=== PATIENT | male | born 1960 | race Caucasian/White ===

== ENCOUNTER 2016-09-06 17:36 | Inpatient (IN) | payer OTHER ==
[2016-09-06] MEDS ORDERED: RX INFO: IV CONTRAST WAS GIVEN 1 EACH MISC MISCELLANE PRN (19:11)
[2016-09-06] MEDS ORDERED: SODIUM CHLORIDE 0.9% 1,000 ML IV STA (19:11)
[2016-09-06] MEDS ORDERED: ACETAMINOPHEN IV (For NPO) 1,000 MG in EMPTY BAG 1 BAG IVPB ONE (19:11)
--- NOTE | 2016-09-06 19:27 | ED ---
Abdominal Pain HPI <ApolinarEusebio - Last Filed: 09/06/16 21:56> - General Source: patient, RN notes reviewed Mode of arrival: ambulatory <Maureen Ayala - Last Filed: 09/06/16 22:15> - General Chief Complaint: Abdominal Pain Stated Complaint: ABDOMINAL PAIN, POST GALLBLADDER Sx Time Seen by Provider: 09/06/16 18:52 - History of Present Illness Initial Comments: 55-year-old male presents to the emergency abdominal pain. Patient states that this pain started over the last week or so. Patient states he had nausea and vomiting with it. Patient does admit to a recent gallbladder surgery by Dr. Boyer about a month ago. Patient states that he has felt hot and cold with vomiting. Patient states that she has this pain in the center of his abdomen. Patient states his concern that the recent surgery and the symptoms he thought that he should be evaluated. Patient states he has not contacted surgery about his complaints.Patient denies any recent fever, chills, shortness of breath, chest pain, back pain, numbness or tingling, dysuria or hematuria, constipation or diarrhea, headaches or visual changes, or any other current symptoms. (Maureen Ayala) - Related Data Home Medications Medication Instructions Recorded Confirmed Aspirin 81 mg PO DAILY 08/11/16 09/06/16 Cyclobenzaprine [Flexeril] 5 mg PO TID PRN 08/11/16 09/06/16 Insulin Glargine [Lantus] 35 unit SQ DAILY 08/11/16 09/06/16 Losartan [Cozaar] 12.5 tab PO DAILY 08/11/16 09/06/16 Meclizine [Antivert] 12.5 mg PO DAILY PRN 08/11/16 09/06/16 metFORMIN HCL [metFORMIN HCL ER] 1,000 mg PO BID 08/11/16 09/06/16 Omeprazole 20 mg PO DAILY 09/06/16 09/06/16 Simethicone [Gas-X] 250 mg PO DAILY 09/06/16 09/06/16 Allergies Allergy/AdvReac Type Severity Reaction Status Date / Time hydromorphone [From Dilaudid] AdvReac Nausea Verified 09/06/16 19:37 morphine AdvReac Nausea Verified 09/06/16 19:37 Review of Systems ROS Other: All systems not noted in ROS Statement are negative. <Eusebio Jiang - Last Filed: 09/06/16 21:56> ROS Other: All systems not noted in ROS Statement are negative. <JamieMaureen - Last Filed: 09/06/16 22:15> ROS Statement: Those systems with pertinent positive or pertinent negative responses have been documented in the HPI. Past Medical History Past Medical History: Diabetes Mellitus Additional Past Medical History / Comment(s): neck and back pain, vertigo History of Any Multi-Drug Resistant Organisms: None Reported Past Surgical History: Cholecystectomy, Hernia Repair Additional Past Surgical History / Comment(s): BILATERAL CATARACT IMPLANTS Past Anesthesia/Blood Transfusion Reactions: No Reported Reaction Past Psychological History: No Psychological Hx Reported Smoking Status: Never smoker Past Alcohol Use History: Occasional Past Drug Use History: None Reported - Past Family History Father Family Medical History: Diabetes Mellitus Additional Family Medical History / Comment(s): LEUKEMIA Mother Additional Family Medical History / Comment(s): CANCER SPINE <Maureen Ayala - Last Filed: 09/06/16 22:15> General Exam <Eusebio Jiang - Last Filed: 09/06/16 21:56> <Maureen Ayala - Last Filed: 09/06/16 22:15> - General Exam Comments Initial Comments: General: The patient is awake and alert, in no distress, and does not appear acutely ill. jaundice Eye: Pupils are equal, round and reactive to light, extra-ocular movements are intact; there is normal conjunctiva bilaterally. No signs of icterus. Ears, nose, mouth and throat: There are moist mucous membranes. Neck: The neck is supple, there is no tenderness. Cardiovascular: There is a regular rate and rhythm. No murmur, rub or gallop is appreciated. Respiratory: Lungs are clear to auscultation, respirations are non-labored, breath sounds are equal. No wheezes, stridor, rales, or rhonchi. Gastrointestinal: Soft, non-distended, epigastric tenderness of the abdomen without masses or organomegaly noted. There is no rebound or guarding present. No CVA tenderness. Bowel sounds are unremarkable. Back: There is no tenderness to palpation in the midline. There is no obvious deformity. No rashes noted. Musculoskeletal: Normal ROM, no tenderness, There is no pedal edema. There is no calf tenderness or swelling. Sensation intact. Pulses equal bilaterally 2+. Neurological: CN II-XII intact, There are no obvious motor or sensory deficits. Coordination appears grossly intact. Speech is normal. Skin: Skin is warm and dry and no rashes or lesions are noted. Psychiatric: Cooperative, appropriate mood & affect, normal judgment. (Maureen Ayala) Medical Decision Making - Lab Data Result diagrams: 09/06/16 19:29 09/06/16 19:29 <Eusebio Jiang - Last Filed: 09/06/16 21:56> - Lab Data Result diagrams: 09/06/16 19:29 09/06/16 19:29 <Maureen Ayala - Last Filed: 09/06/16 22:15> - Medical Decision Making Medical decision making. I examined the patient, reviewed his past history, recent laparoscopic cholecystectomy. Patient's had nausea vomiting and diarrhea. Skin is mildly yellow. Labs show bilirubin of 6.0 liver enzymes otherwise elevated. I discussed the case with Dr. Cool on-call for Dr. espinal. Patient be admitted to his service Nothing by mouth after midnight. With GI consultation. Dr. Jiang (Eusebio Jiang) 55-year-old male presents emergency 5 chief complaint of epigastric abdominal pain with nausea vomiting. At this time patient's laboratory is reviewed that show an elevated bilirubin and the patient is jaundiced on exam. At this time we did discuss the case with Dr. Guevara who would like us to consult GI. At this time we will keep the patient nothing by mouth and continued pain and nausea medication. The plan was discussed with patient who is in agreement. (Maureen Ayala) - Lab Data Lab Results 09/06/16 09/06/16 09/06/16 Range/Units 19:29 19:29 19: WBC 10.5 (3.8-10.6) k/uL RBC 5.02 (4.30-5.90) m/uL Hgb 12.2 L (13.0-17.5) gm/dL Hct 39.3 (39.0-53.0) % MCV 78.3 L (80.0-100.0) fL MCH 24.4 L (25.0-35.0) pg MCHC 31.2 (31.0-37.0) g/dL RDW 15.2 (11.5-15.5) % Plt Count 268 (150-450) k/uL Neutrophils % 78 % Lymphocytes % 14 % Monocytes % 6 % Eosinophils % 0 % Basophils % 0 % Neutrophils # 8.2 H (1.3-7.7) k/uL Lymphocytes # 1.4 (1.0-4.8) k/uL Monocytes # 0.6 (0-1.0) k/uL Eosinophils # 0.0 (0-0.7) k/uL Basophils # 0.0 (0-0.2) k/uL Hypochromasia Slight Sodium 139 (137-145) mmol/L Potassium 4.3 (3.5-5.1) mmol/L Chloride 100 (98-107) mmol/L Carbon Dioxide 28 (22-30) mmol/L Anion Gap 11 mmol/L BUN 19 (9-20) mg/dL Creatinine 1.19 (0.66-1.25) mg/dL Est GFR (MDRD) Af Amer >60 (>60 ml/min/1.73 sqM) Est GFR (MDRD) Non-Af >60 (>60 ml/min/1.73 sqM) Glucose 176 H (74-99) mg/dL Plasma Lactic Acid Vipul 1.5 (0.7-2.0) mmol/L Calcium 9.7 (8.4-10.2) mg/dL Total Bilirubin 6.0 H (0.2-1.3) mg/dL AST 550 H (17-59) U/L ALT 188 H (21-72) U/L Alkaline Phosphatase 168 H (38-126) U/L Total Protein 7.2 (6.3-8.2) g/dL Albumin 4.5 (3.5-5.0) g/dL Amylase 53 (30-110) U/L Lipase 72 (23-300) U/L Urine Color Urine Appearance (Clear) Urine pH (5.0-8.0) Ur Specific [place] (1.001-1.035) Urine Protein (Negative) Urine Glucose (UA) (Negative) Urine Ketones (Negative) Urine Blood (Negative) Urine Nitrate (Negative) Urine Bilirubin (Negative) Urine Urobilinogen (<2.0) mg/dL Ur Leukocyte Esterase (Negative) 09/06/16 Range/Units 20:39 WBC (3.8-10.6) k/uL RBC (4.30-5.90) m/uL Hgb (13.0-17.5) gm/dL Hct (39.0-53.0) % MCV (80.0-100.0) fL MCH (25.0-35.0) pg MCHC (31.0-37.0) g/dL RDW (11.5-15.5) % Plt Count (150-450) k/uL Neutrophils % % Lymphocytes % % Monocytes % % Eosinophils % % Basophils % % Neutrophils # (1.3-7.7) k/uL Lymphocytes # (1.0-4.8) k/uL Monocytes # (0-1.0) k/uL Eosinophils # (0-0.7) k/uL Basophils # (0-0.2) k/uL Hypochromasia Sodium (137-145) mmol/L Potassium (3.5-5.1) mmol/L Chloride (98-107) mmol/L Carbon Dioxide (22-30) mmol/L Anion Gap mmol/L BUN (9-20) mg/dL Creatinine (0.66-1.25) mg/dL Est GFR (MDRD) Af Amer (>60 ml/min/1.73 sqM) Est GFR (MDRD) Non-Af (>60 ml/min/1.73 sqM) Glucose (74-99) mg/dL Plasma Lactic Acid Vipul (0.7-2.0) mmol/L Calcium (8.4-10.2) mg/dL Total Bilirubin (0.2-1.3) mg/dL AST (17-59) U/L ALT (21-72) U/L Alkaline Phosphatase (38-126) U/L Total Protein (6.3-8.2) g/dL Albumin (3.5-5.0) g/dL Amylase (30-110) U/L Lipase (23-300) U/L Urine Color Dark Yellow Urine Appearance Clear (Clear) Urine pH 6.5 (5.0-8.0) Ur Specific [place] 1.043 H (1.001-1.035) Urine Protein Trace H (Negative) Urine Glucose (UA) 1+ H (Negative) Urine Ketones 2+ H (Negative) Urine Blood Negative (Negative) Urine Nitrate Negative (Negative) Urine Bilirubin 2+ H (Negative) Urine Urobilinogen 4.0 (<2.0) mg/dL Ur Leukocyte Esterase Negative (Negative) Disposition <Eusebio Jiang - Last Filed: 09/06/16 21:56> Time of Disposition: 22:14 Decision Date: 09/06/16 Decision Time: 22:14 <Maureen Ayala - Last Filed: 09/06/16 22:15> Clinical Impression: Abdominal pain, Type 2 diabetes mellitus, Jaundice, Elevated bilirubin, Nausea & vomiting, Biliary obstruction Disposition: ADMITTED IP TO THIS HOSP Condition: Stable
[2016-09-06 19:40] LABS: Basophils % (A) 0 %; CH 24.7; CHCM 31.7; Eosinophils % (A) 0 %; HCT 39.3 % (39.0-53.0); HDW 2.99; HGB 12.2 gm/dL (13.0-17.5); Hypochromasia Slight; Luc # (Auto) 0.23; Luc % (Auto) 2; Lymphocytes # (A) 1.4 k/uL (1.0-4.8); Lymphocytes % (A) 14 %; MCH 24.4 pg (25.0-35.0); MCHC 31.2 g/dL (31.0-37.0); MCV 78.3 fL (80.0-100.0); Mean Platelet Volume 7.5; Monocytes # (A) 0.6 k/uL (0-1.0); Monocytes % (A) 6 %; Neutrophils # (A) 8.2 k/uL (1.3-7.7); Neutrophils % (A) 78 %; RBC 5.02 m/uL (4.30-5.90); RDW 15.2 % (11.5-15.5); WBC 10.5 k/uL (3.8-10.6); WBC (Perox) 10.58
[2016-09-06 19:56] LABS: ALT 188 U/L (21-72); AST 550 U/L (17-59); Alkaline Phosphatase 168 U/L (38-126); Amylase 53 U/L (30-110); Anion Gap 11 mmol/L; Blood Urea Nitrogen 19 mg/dL (9-20); Calcium 9.7 mg/dL (8.4-10.2); Carbon Dioxide 28 mmol/L (22-30); Chloride 100 mmol/L (98-107); Glucose 176 mg/dL (74-99); Non-African American GFR(MDRD) >60 (>60 ml/min/1.73 sqM); Potassium 4.3 mmol/L (3.5-5.1); Sodium 139 mmol/L (137-145); Total Protein 7.2 g/dL (6.3-8.2)
--- NOTE | 2016-09-06 20:33 | CT ---
EXAMINATION TYPE: CT abdomen pelvis w con DATE OF EXAM: 09/06/2016 8:25 PM COMPARISON: 08/11/2016 HISTORY: Post OP Dhole 4 weeks ago. Generalized pain for [address] DLP: 1328.4 mGycm Automated exposure control for dose reduction was used. TECHNIQUE: Helical acquisition of images was performed from the lung bases through the pelvis. CONTRAST: Performed without Oral Contrast and with IV Contrast, patient injected with 100 mL of Omnipaque 300. FINDINGS: Lung bases are clear. There is no pleural effusion. There is a hiatal hernia. Heart size is normal. Liver spleen pancreas appear normal. There are clips from cholecystectomy. There is minimal density a t the surgery site. Bile ducts are not dilated. There is no adrenal mass. Kidneys show satisfactory contrast opacification. There is no hydronephrosi s. There is no retroperitoneal adenopathy. There is no ascites. Appendix is normal. I see no intestin al wall thickening. There are no dilated loops. Bladder distends smoothly. There is no sign of a pelvic mass. I see no bony destructive process. IMPRESSION: THERE IS SOME MINIMAL DENSITY AT THE CHOLECYSTECTOMY SITE CONSISTENT WITH POSTSURGICAL CHANGES. OTHER EWING NEGATIVE EXAM. NORMAL APPENDIX. THERE IS CHOLECYSTECTOMY SINCE LAST EXAM. NO DILATED DUCTS. HIATAL HERNIA.
[2016-09-06 20:48] LABS: Appearance,Urine Clear (Clear); Bilirubin,Urine 2+ (Negative); Glucose,Urine (UA) 1+ (Negative); Leukocyte Esterase,Urine Negative (Negative); Nitrite,Urine Negative (Negative); PH, Urine 6.5 (5.0-8.0); Protein,Urine Trace (Negative); Specific Gravity,Urine 1.043 (1.001-1.035); UA Billing (MACRO vs. MICRO) CHEM
[2016-09-06 21:09] LABS: Ketones,Urine 2+ (Negative)
--- NOTE | 2016-09-06 21:17 | US ---
EXAMINATION TYPE: US abdomen limited DATE OF EXAM: 09/06/2016 9:07 PM COMPARISON: US 08/11/2016, CT tonight CLINICAL HISTORY: Cholecystectomy 1 month ago, on and off abd pain since, getting worse starting 1 we ek ago, gross hematuria today EXAM MEASUREMENTS: Liver Length: 17.5cm Gallbladder Wall: N/A CBD: 0.5cm Right Kidney: 9.8 x 4.9 x 5.4cm RUQ ABDOMINAL ULTRASOUND ANATOMY: Pancreas: limited visibility due to bowel gas Liver: intercostal imaging due to gas, appears wnl Gallbladder: surgically absent CBD: wnl Right Kidney: wnl IMPRESSION: Cholecystectomy. No dilated ducts. No focal liver defect. No free fluid. Normal Values: Liver Length: < 16cm wnl, 17-18cm upper limits, >18cm enlarged Renal Length = 9 - 12cm GB Wall: < 0.3cm CBD: < 0.6cm or < 1.0cm post cholecystectomy Portal Vein Diameter: < 13mm Portal Vein Flow Velocity: between 16 and 40cm/sec Hepatic Artery resistive Index: between 0.55 and 0.8 Hepatic Artery Acceleration Time: <0.08 seconds Splenic Vein Diameter: < 10mm
[2016-09-06] MEDS ORDERED: NALOXONE 0.4 MG/ML 1 ML VIAL IV PRN (22:15)
[2016-09-06] MEDS ORDERED: ACETAMINOPHEN TAB 325 MG TAB PO PRN (22:15)
[2016-09-06] MEDS ORDERED: MECLIZINE 12.5 MG TAB PO PRN (22:17)
[2016-09-06] MEDS ORDERED: CYCLOBENZAPRINE 5 MG TAB PO PRN (22:17)
[2016-09-06] MEDS ORDERED: HYDROmorphone 1 MG/ML 1 ML SYRINGE IVP STA ×2 (22:17→23:34)
[2016-09-06] MEDS: SODIUM CHLORIDE 0.9% 1,000 ML IV SCH (23:55)
[2016-09-07 00:31] VITALS: BMI 32.0
[2016-09-07] MEDS: HYDROmorphone 1 MG/ML 1 ML SYRINGE IVP PRN ×5 (03:47→20:31)
[2016-09-07] MEDS: ONDANSETRON 4 MG/2 ML VIAL IVP PRN ×2 (03:48→20:11)
[2016-09-07 07:21] LABS: Basophils % (A) 0 %; CH 24.7; Eosinophils # (A) 0.1 k/uL (0-0.7); Eosinophils % (A) 1 %; HCT 39.4 % (39.0-53.0); HDW 2.95; HGB 11.9 gm/dL (13.0-17.5); Hypochromasia Moderate; Luc # (Auto) 0.23; Luc % (Auto) 2; Lymphocytes # (A) 1.6 k/uL (1.0-4.8); Lymphocytes % (A) 16 %; MCH 24.2 pg (25.0-35.0); MCHC 30.2 g/dL (31.0-37.0); MCV 80.1 fL (80.0-100.0); Mean Platelet Volume 8.2; Monocytes # (A) 0.6 k/uL (0-1.0); Monocytes % (A) 6 %; Neutrophils # (A) 7.3 k/uL (1.3-7.7); Neutrophils % (A) 74 %; RBC 4.92 m/uL (4.30-5.90); RDW 15.5 % (11.5-15.5); WBC 9.8 k/uL (3.8-10.6); WBC (Perox) 10.02
[2016-09-07] MEDS ORDERED: metFORMIN 500 MG TAB PO SCH (07:30)
[2016-09-07 07:34] LABS: ALT 187 U/L (21-72); AST 420 U/L (17-59); Alkaline Phosphatase 161 U/L (38-126); Anion Gap 12 mmol/L; Blood Urea Nitrogen 14 mg/dL (9-20); Calcium 9.3 mg/dL (8.4-10.2); Carbon Dioxide 27 mmol/L (22-30); Chloride 101 mmol/L (98-107); Glucose 154 mg/dL (74-99); Magnesium 1.8 mg/dL (1.6-2.3); Non-African American GFR(MDRD) >60 (>60 ml/min/1.73 sqM); Phosphorous 3.6 mg/dL (2.5-4.5); Potassium 4.4 mmol/L (3.5-5.1); Sodium 140 mmol/L (137-145); Total Bilirubin 6.6 mg/dL (0.2-1.3); Total Protein 6.7 g/dL (6.3-8.2)
[2016-09-07 07:54] LABS: Glucose,Whole Blood 134 mg/dL (75-99)
[2016-09-07] MEDS ORDERED: PANTOPRAZOLE 40 MG TABLET PO SCH (09:00)
[2016-09-07 09:43] LABS: Bilirubin, Delta 1.9 mg/dL (0.0-0.2)
[2016-09-07 10:15] LABS: Hepatitis B Surface Ag Index 0.06
[2016-09-07] MEDS: INSULIN LISPRO (humaLOG) 300 UNIT/3 ML VIAL SQ SCH ×4 (10:18→20:11)
[2016-09-07] MEDS: ASPIRIN 81 MG CHEW PO SCH (10:19)
[2016-09-07] MEDS: SIMETHICONE 80 MG CHEWABLE PO SCH (10:19)
[2016-09-07 10:20] LABS: Hepatitis B Core IgM Index 0.03
[2016-09-07] MEDS: INSULIN GLARGINE 100 UNIT/ML 10 ML VIAL SQ SCH (10:20)
[2016-09-07] MEDS: LOSARTAN 25 MG TAB PO SCH (10:21)
[2016-09-07 10:32] LABS: Hepatitis C Virus IgG Index 0.02
[2016-09-07 10:40] LABS: Hepatitis C Virus IgG Ab Negative (Negative)
--- NOTE | 2016-09-07 11:44 | CONS ---
DATE OF CONSULTATION: The patient is a 55-year-old gentleman who has recent cholecystectomy about week ago came in with complaints of severe epigastric abdominal pain. Patient is admitted to surgical service and the patient is also found to have hyperbilirubinemia. I reviewed his medications. None of which appear to have caused biliary stasis. CT of the abdomen only showed postsurgical changes. The patient's ultrasound of the abdomen is essentially negative. Patient had 10/10 epigastric sharp pain, nonradiating pain and this probably related to gastritis and hepatitis panel was ordered. Bilirubin fractions are still pending. Gastroenterology was consulted as well. Patient denied any fever or chills. Patient was having nausea, vomiting, which improved at this point of time. Patient is on Dilaudid frequently about every 2 hours and his pain is well controlled with Dilaudid he says. REVIEW OF SYSTEMS: CONSTITUTIONAL: No fever, no malaise, no fatigue. HEENT: No recent visual problems or hearing problems. Denied any sore throat. CARDIOVASCULAR: No chest pain, orthopnea, PND, no palpitations, no syncope. PULMONARY: No shortness of breath, no cough, no hemoptysis. GASTROINTESTINAL: as described in HPI. NEUROLOGICAL: No headaches, no weakness, no numbness. HEMATOLOGICAL: Denies any bleeding or petechiae. GENITOURINARY: Denies any burning micturition, frequency, or urgency. MUSCULOSKELETAL/RHEUMATOLOGICAL: Denies any joint pain, swelling, or any muscle pain. ENDOCRINE: Denies any polyuria or polydipsia. The rest of the 14 point review of systems is negative. PAST MEDICAL HISTORY: Significant for ( ). Home medications include: 1. Aspirin. 2. Cyclobenzaprine. 3. Losartan. 4. Insulin glargine. 5. Meclizine. 6. Metformin. 7. Omeprazole. 8. Simethicone. ALLERGIES: ALLERGIC TO HYDROMORPHONE but the patient is actually taking hydromorphone and morphine and so actually patient is probably not allergic to this medication. Past medical history significant for diabetes mellitus and back and neck pain, vertigo, cholecystectomy and hernia repair. SOCIAL HISTORY: Denied any smoking, occasional alcohol user. Denied any drug abuse. FAMILY HISTORY: Significant for diabetes mellitus. Father had diabetes mellitus and leukemia. Mother had ( ) cancer as per the patient. PHYSICAL EXAMINATION: VITAL SIGNS: Temperature 96.2, pulse of 90, respiratory rate of ( ), blood pressure is 169/94. Saturating at 98% on room air. GENERAL: The patient is alert and oriented x3, not in any acute distress. Well developed, well nourished. HEENT: Pupils are round and equally reacting to light. EOMI. No scleral icterus. No conjunctival pallor. Normocephalic, atraumatic. No pharyngeal erythema. No thyromegaly. CARDIOVASCULAR: S1 and S2 present. No murmurs, rubs, or gallops. PULMONARY: Chest is clear to auscultation, no wheezing or crackles. ABDOMEN: minimal epigastric abdominal tenderness was appreciated. Abdomen is distended because of fat, no rebound or rigidity. Whitaker's sign is negative. MUSCULOSKELETAL: No joint swelling or deformity. EXTREMITIES: No cyanosis, clubbing, or pedal edema. NEUROLOGICAL: Gross neurological examination did not reveal any focal deficits. SKIN: No rashes. LABORATORY DATA: CBC, CMP are abnormal for significantly abnormal for elevated bilirubin of 6.6. The patient appears to have conjugated as well as unconjugated bilirubinemia which makes us believe patient has some intrahepatic causes, liver enzymes AST and ALT are elevated which are actually appears to have come down a little bit, AST and ALT and alkaline phosphatase are a bit elevated. UA showed 2+ bilirubin and hepatitis panel was done, which is negative. Further work-up with autoimmune causes for hyperbilirubinemia as per gastroenterology. ASSESSMENT AND PLAN: 1. Epigastric abdominal pain is probably related to his gastritis. Continue with pain medications and continue Protonix which was changed to b.i.d. 2. Elevated liver enzymes; unsure of the exact etiology. Patient probably will need autoimmune workup. I will leave further decision of these autoimmune antibiotics to gastroenterology who evaluated the patient and patient has liver enzymes will be monitored tomorrow. Patient most probably his biliary stasis is probably related to medications, the antibiotics he received during his previous hospitalization I believe. Maybe [place] is contributing to it as well and patient is on Tylenol which will be discontinued. 3. It is not uncommon to find any other cause, although we are still in preliminary stage of work-up for his hyperbilirubinemia. 4. Hypertension. 5. Gastroesophageal reflux disease. 6. Diabetes mellitus. For above-mentioned chronic medical problems I will go ahead and continue his home medications. Thank you for letting me participate in the patient's care. I will continue to follow the patient.
[2016-09-07 12:08] LABS: Glucose,Whole Blood 136 mg/dL (75-99)
[2016-09-07] MEDS ORDERED: ACETAMINOPHEN TAB 325 MG TAB PO PRN (14:00)
--- NOTE | 2016-09-07 14:18 | P.GSHP ---
History of Present Illness H&P Date: 09/07/16 Chief Complaint: Jaundice with abdominal pain Patient is a 55-year-old gentleman who presents with worsening abdominal pain loss of appetite and jaundice. He had gangrenous cholecystitis without any cholelithiasis but the pathological report approximately a month ago. There is no history of IV drug abuse R blood exposure. There is no history of inflammatory bowel disease or any autoimmune process in the family that I know of.. History the patient has lost appetite and lost weight in the last 1 month. He doesn't give a very clear history but he may have acholic stools. He is complaining of abdominal pain which is primarily in the right upper quadrant which is moderate moderate to severe. He has a loss of appetite. Has not had any hematemesis hematochezia or melena. Otherwise he is ablating well. There is no known history of industrial exposure either. He does not take any high-dose of acetaminophen or Tylenol he has had 1 episode where he had food stuck in the lower part of the esophagus but no other GI complaints in the past. He's never had a colonoscopy in the past. - Constitutional Constitutional: Reports anorexia, Reports chronic pain, Reports fatigue, Reports weakness, Denies chills, Denies fever - Cardiovascular Cardiovascular: Denies chest pain, Denies shortness of breath - Respiratory Respiratory: Denies cough, Denies 7 - Gastrointestinal Gastrointestinal: Reports as per HPI - Genitourinary (Male) Genitourinary: Denies dysuria, Denies hematuria - Musculoskeletal Musculoskeletal: Denies myalgias - Integumentary Integumentary: Reports brittle nails, Reports color changes - Psychiatric Psychiatric: Denies anxiety, Denies depression - Endocrine Endocrine: Denies fatigue, Denies weight change - Hematologic/Lymphatic Hematologic/Lymphatic: Denies as per HPI, Denies easy bleeding, Denies easy bruising, Denies lymphadenopathy, Denies lymphedema, Denies thrombophilia Past Medical History Past Medical History: Diabetes Mellitus, GERD/Reflux Additional Past Medical History / Comment(s): neck and back pain, vertigo History of Any Multi-Drug Resistant Organisms: None Reported Past Surgical History: Cholecystectomy, Hernia Repair Additional Past Surgical History / Comment(s): BILATERAL CATARACT IMPLANTS Past Anesthesia/Blood Transfusion Reactions: No Reported Reaction Past Psychological History: No Psychological Hx Reported Smoking Status: Never smoker Past Alcohol Use History: None Reported Past Drug Use History: None Reported - Past Family History Father Family Medical History: Diabetes Mellitus Additional Family Medical History / Comment(s): LEUKEMIA Mother Additional Family Medical History / Comment(s): CANCER SPINE Medications and Allergies Home Medications Medication Instructions Recorded Confirmed Type Aspirin 81 mg PO DAILY 08/11/16 09/06/16 History Cyclobenzaprine [Flexeril] 5 mg PO TID PRN 08/11/16 09/06/16 History Insulin Glargine [Lantus] 35 unit SQ DAILY 08/11/16 09/06/16 History Losartan [Cozaar] 12.5 tab PO DAILY 08/11/16 09/06/16 History Meclizine [Antivert] 12.5 mg PO DAILY PRN 08/11/16 09/06/16 History metFORMIN HCL [metFORMIN HCL ER] 1,000 mg PO BID 08/11/16 09/06/16 History Omeprazole 20 mg PO DAILY 09/06/16 09/06/16 History Simethicone [Gas-X] 250 mg PO DAILY 09/06/16 09/06/16 History Allergies Allergy/AdvReac Type Severity Reaction Status Date / Time hydromorphone [From Dilaudid] AdvReac Nausea Verified 09/06/16 19:37 morphine AdvReac Nausea Verified 09/06/16 19:37 Surgical - Exam Vital Signs Temp Pulse Resp BP Pulse Ox 98 F 99 18 170/97 99 09/06/16 18:03 09/06/16 18:03 09/06/16 18:03 09/06/16 18:03 09/06/16 18:03 - General well developed, moderate distress - Eyes PERRL, icteric - ENT normal pinna, normal nares, normal mucosa - Neck no masses - Respiratory normal expansion, normal respiratory effort - Cardiovascular Rhythm: regular - Abdomen Mild diffuse tenderness but no guarding or rebound. Abdomen: soft, tender, surgical scars - Integumentary no rash, no growths - Neurologic normal coordination - Psychiatric oriented to time, oriented to person, oriented to place, speech is normal, memory intact Results - Labs 09/07/16 06:50 09/07/16 06:50 Abnormal Lab Results - Last 24 Hours (Table) 09/07/16 09/07/16 09/07/16 Range/Units 06:50 06:50 07:51 Hgb 11.9 L (13.0-17.5) gm/dL MCH 24.2 L (25.0-35.0) pg MCHC 30.2 L (31.0-37.0) g/dL Glucose 154 H (74-99) mg/dL POC Glucose (mg/dL) 134 H (75-99) mg/dL Total Bilirubin 6.6 H (0.2-1.3) mg/dL Conjugated Bilirubin 2.3 H (0.0-0.3) mg/dL Unconjugated Bilirubin 2.4 H (0.0-1.1) mg/dL Delta Bilirubin 1.9 H (0.0-0.2) mg/dL AST 420 H (17-59) U/L ALT 187 H (21-72) U/L Alkaline Phosphatase 161 H (38-126) U/L 09/07/16 Range/Units 12:06 Hgb (13.0-17.5) gm/dL MCH (25.0-35.0) pg MCHC (31.0-37.0) g/dL Glucose (74-99) mg/dL POC Glucose (mg/dL) 136 H (75-99) mg/dL Total Bilirubin (0.2-1.3) mg/dL Conjugated Bilirubin (0.0-0.3) mg/dL Unconjugated Bilirubin (0.0-1.1) mg/dL Delta Bilirubin (0.0-0.2) mg/dL AST (17-59) U/L ALT (21-72) U/L Alkaline Phosphatase (38-126) U/L Diabetes panel 09/07/16 Range/Units 06:50 Sodium 140 (137-145) mmol/L Potassium 4.4 (3.5-5.1) mmol/L Chloride 101 (98-107) mmol/L Carbon Dioxide 27 (22-30) mmol/L BUN 14 (9-20) mg/dL Creatinine 1.12 (0.66-1.25) mg/dL Glucose 154 H (74-99) mg/dL Calcium 9.3 (8.4-10.2) mg/dL AST 420 H (17-59) U/L ALT 187 H (21-72) U/L Alkaline Phosphatase 161 H (38-126) U/L Total Protein 6.7 (6.3-8.2) g/dL Albumin 4.0 (3.5-5.0) g/dL Calcium panel 09/07/16 Range/Units 06:50 Calcium 9.3 (8.4-10.2) mg/dL Phosphorus 3.6 (2.5-4.5) mg/dL Albumin 4.0 (3.5-5.0) g/dL Pituitary panel 09/07/16 Range/Units 06:50 Sodium 140 (137-145) mmol/L Potassium 4.4 (3.5-5.1) mmol/L Chloride 101 (98-107) mmol/L Carbon Dioxide 27 (22-30) mmol/L BUN 14 (9-20) mg/dL Creatinine 1.12 (0.66-1.25) mg/dL Glucose 154 H (74-99) mg/dL Calcium 9.3 (8.4-10.2) mg/dL Adrenal panel 09/07/16 Range/Units 06:50 Sodium 140 (137-145) mmol/L Potassium 4.4 (3.5-5.1) mmol/L Chloride 101 (98-107) mmol/L Carbon Dioxide 27 (22-30) mmol/L BUN 14 (9-20) mg/dL Creatinine 1.12 (0.66-1.25) mg/dL Glucose 154 H (74-99) mg/dL Calcium 9.3 (8.4-10.2) mg/dL Total Bilirubin 6.6 H (0.2-1.3) mg/dL AST 420 H (17-59) U/L ALT 187 H (21-72) U/L Alkaline Phosphatase 161 H (38-126) U/L Total Protein 6.7 (6.3-8.2) g/dL Albumin 4.0 (3.5-5.0) g/dL - Imaging CT scan - abdomen: report reviewed, image reviewed US - abdomen: report reviewed, image reviewed (Appropriate postoperative changes without any elevation in CBD size or fluid collection) Assessment and Plan (1) Jaundice Status: Acute (2) Nausea & vomiting Status: Acute (3) Type 2 diabetes mellitus Status: Acute Plan: Patient is a 55-year-old male with elevated liver enzymes. On the picture is not obstructive in nature. This is unlikely to be surgical of extrahepatic in a region. At this time we will continue to workup the patient with an MRCP and a any labs. Detailed discussion was done with Dr. Wang once the MRCP is done there is a possibility of a liver biopsy or an ERCP for further delineation of the cause. At this time it is unlikely to be post surgical R Seckel due to a surgical issue.
[2016-09-07] MEDS ORDERED: IV VANCOMYCIN PER PHARMACY 1 EACH MISC MISCELLANE PRN (15:06)
[2016-09-07] MEDS ORDERED: VANCOMYCIN 1,750 MG in SODIUM CHLORIDE 0.9% 250 ML IVPB ONE (16:00)
[2016-09-07 16:25] LABS: Glucose,Whole Blood 103 mg/dL (75-99)
[2016-09-07 18:33] LABS: Hemoglobin A1C 10.6 % (4.2-6.1)
[2016-09-07 19:57] LABS: Glucose,Whole Blood 155 mg/dL (75-99)
[2016-09-07] MEDS: PANTOPRAZOLE 40 MG TABLET PO SCH (20:12)
[2016-09-07] MEDS: SODIUM CHLORIDE 0.9% 1,000 ML IV SCH ×2 (20:26→22:33)
[2016-09-07] MEDS ORDERED: KETOROLAC 30 MG/ML 1 ML VIAL IVP PRN (20:44)
[2016-09-08] MEDS ORDERED: VANCOMYCIN 1,750 MG in SODIUM CHLORIDE 0.9% 250 ML IVPB SCH (06:00)
[2016-09-08 08:19] LABS: Basophils % (A) 0 %; CH 24.6; CHCM 30.9; Eosinophils # (A) 0.3 k/uL (0-0.7); Eosinophils % (A) 3 %; HCT 37.6 % (39.0-53.0); HDW 2.93; HGB 11.5 gm/dL (13.0-17.5); Hypochromasia Moderate; Luc # (Auto) 0.32; Luc % (Auto) 3; Lymphocytes % (A) 21 %; MCH 24.4 pg (25.0-35.0); MCHC 30.5 g/dL (31.0-37.0); MCV 80.1 fL (80.0-100.0); Mean Platelet Volume 7.5; Monocytes # (A) 0.7 k/uL (0-1.0); Monocytes % (A) 7 %; Neutrophils # (A) 6.4 k/uL (1.3-7.7); Neutrophils % (A) 66 %; RBC 4.69 m/uL (4.30-5.90); RDW 15.5 % (11.5-15.5); WBC 9.7 k/uL (3.8-10.6); WBC (Perox) 9.76
[2016-09-08 08:31] LABS: ALT 153 U/L (21-72); AST 221 U/L (17-59); Alkaline Phosphatase 185 U/L (38-126); Anion Gap 13 mmol/L; Bilirubin, Delta 1.9 mg/dL (0.0-0.2); Blood Urea Nitrogen 12 mg/dL (9-20); Calcium 9.1 mg/dL (8.4-10.2); Carbon Dioxide 24 mmol/L (22-30); Chloride 104 mmol/L (98-107); Glucose 70 mg/dL (74-99); Non-African American GFR(MDRD) >60 (>60 ml/min/1.73 sqM); Potassium 4.1 mmol/L (3.5-5.1); Sodium 141 mmol/L (137-145); Total Bilirubin 6.1 mg/dL (0.2-1.3); Total Protein 6.4 g/dL (6.3-8.2)
[2016-09-08 08:39] LABS: Glucose,Whole Blood 128 mg/dL (75-99)
[2016-09-08] MEDS: INSULIN LISPRO (humaLOG) 300 UNIT/3 ML VIAL SQ SCH ×4 (08:41→21:06)
[2016-09-08] MEDS: SIMETHICONE 80 MG CHEWABLE PO SCH (08:50)
[2016-09-08] MEDS: ASPIRIN 81 MG CHEW PO SCH (08:50)
[2016-09-08] MEDS: INSULIN GLARGINE 100 UNIT/ML 10 ML VIAL SQ SCH (08:50)
[2016-09-08] MEDS: LOSARTAN 25 MG TAB PO SCH (08:51)
[2016-09-08] MEDS: PANTOPRAZOLE 40 MG TABLET PO SCH ×2 (08:51→21:06)
--- NOTE | 2016-09-08 11:46 | P.PN ---
Subjective Principal diagnosis: Jaundice Is doing okay at this time continues to have some abdominal pain but is feeling very hungry. There is no nausea no vomiting. Objective - Vital Signs Vital signs: Vital Signs Temp 97.5 F L 09/08/16 07:00 Pulse 95 09/08/16 08:00 Resp 16 09/08/16 08:00 BP 139/84 09/08/16 07:00 Pulse Ox 98 09/08/16 07:00 Intake & Output 09/07/16 09/08/16 09/08/16 18:59 06:59 18:59 Intake Total 480 400 Balance 480 400 Weight 107 kg Intake: Intake, IV Titration 400 Amount Sodium Chloride 0.9% 1, 400 000 ml @ 100 mls/hr IV . Q10H MARCO ANTONIO Rx#:[id number] Oral 480 Other: Voiding Method Toilet Toilet Toilet # Voids 3 1 - Constitutional General appearance: Present: cooperative - Gastrointestinal Gastrointestinal Comment(s): Abdomen is mildly tender and distended. General gastrointestinal: Present: soft - Integumentary Integumentary: Present: jaundiced - Labs CBC & Chem 7: 09/08/16 07:13 09/08/16 07:13 Labs: Abnormal Lab Results - Last 24 Hours (Table) 09/07/16 09/07/16 09/07/16 Range/Units 12:06 16:24 19:55 Hgb (13.0-17.5) gm/dL Hct (39.0-53.0) % MCH (25.0-35.0) pg MCHC (31.0-37.0) g/dL Glucose (74-99) mg/dL POC Glucose (mg/dL) 136 H 103 H 155 H (75-99) mg/dL Total Bilirubin (0.2-1.3) mg/dL Conjugated Bilirubin (0.0-0.3) mg/dL Unconjugated Bilirubin (0.0-1.1) mg/dL Delta Bilirubin (0.0-0.2) mg/dL AST (17-59) U/L ALT (21-72) U/L Alkaline Phosphatase (38-126) U/L 09/08/16 09/08/16 09/08/16 Range/Units 07:13 07:13 08:38 Hgb 11.5 L (13.0-17.5) gm/dL Hct 37.6 L (39.0-53.0) % MCH 24.4 L (25.0-35.0) pg MCHC 30.5 L (31.0-37.0) g/dL Glucose 70 L (74-99) mg/dL POC Glucose (mg/dL) 128 H (75-99) mg/dL Total Bilirubin 6.1 H (0.2-1.3) mg/dL Conjugated Bilirubin 2.1 H (0.0-0.3) mg/dL Unconjugated Bilirubin 2.1 H (0.0-1.1) mg/dL Delta Bilirubin 1.9 H (0.0-0.2) mg/dL AST 221 H (17-59) U/L ALT 153 H (21-72) U/L Alkaline Phosphatase 185 H (38-126) U/L Assessment and Plan (1) Jaundice Status: Acute (2) Nausea & vomiting Status: Acute (3) Type 2 diabetes mellitus Status: Acute Plan: Patient is a 55-year-old male with elevated liver enzymes. He has a positive blood culture with alphahemolytic streptococci which is being treated. His lab have not changed considerably. MRCP scheduled for tomorrow morning. MRCP does not so any surgical issues I would recommend transfer service to internal medicine since this is probably intrahepatic and region. Does not seem to be any surgical operation for this jaundice. Further recommendations to follow
--- NOTE | 2016-09-08 12:14 | XR ---
EXAMINATION TYPE: XR chest 2V DATE OF EXAM: 09/08/2016 12:04 PM COMPARISON: NONE HISTORY: Cough, pneumonia FINDINGS: The lungs are clear and there is no pneumothorax, pleural effusion, or focal pneumonia. Hypertrophi c changes spine noted. Apical pleural thickening. IMPRESSION: 1. No acute process.
[2016-09-08] MEDS: cefTRIAXone 2,000 MG in SODIUM CHLORIDE 0.9% 100 ML IVPB SCH (12:23)
[2016-09-08 12:38] LABS: Glucose,Whole Blood 102 mg/dL (75-99)
--- NOTE | 2016-09-08 15:20 | PN ---
This is a 55-year-old came in with abdominal pain in the epigastric area, which completely resolved at this point of time and patient also has elevated liver enzymes, which we do not have any explanation yet, although the work-up so far including serological testing that hepatitis panel is essentially negative but there is another issue, patient is bacteremic with hemolytic streptococci, source is unknown at this point of time. Patient does not have any history of valvular replacement in the past and we are repeating the blood cultures today and tomorrow morning and I will also obtain a chest x-ray to make sure patient does not have any pneumonic process being the primary source is bacteremia and that may be contributing to the liver dysfunction as well and the patient will be switched to Rocephin from vancomycin which was started yesterday when the orgasm is not well characterized. REVIEW OF SYSTEMS: CARDIOVASCULAR: No chest pain, no orthopnea, no PND, no palpitations. PULMONARY: Denied any shortness of breath. No cough or hemoptysis. GASTROINTESTINAL: No diarrhea, nausea or vomiting. No abdominal pain. Normoactive bowel sounds. NEUROLOGIC: No headaches, no weakness, no numbness. Medications were reviewed. PHYSICAL EXAMINATION: Temperature 97.5, pulse of 95, respiratory rate of 16, blood pressure is 139/84, saturating at 98% on room air. GENERAL: The patient is alert and oriented x3, not in any acute distress. Well developed, well nourished. HEENT: Patient does have a scleral icterus, no conjunctival pallor. Normocephalic, atraumatic. No pharyngeal erythema. No thyromegaly. CARDIOVASCULAR: S1 and S2 present. No murmurs, rubs, or gallops. PULMONARY: Chest is clear to auscultation, no wheezing or crackles. ABDOMEN: Soft, nontender, nondistended, normoactive bowel sounds. No palpable organomegaly. MUSCULOSKELETAL: No joint swelling or deformity. EXTREMITIES: No cyanosis, clubbing, or pedal edema. NEUROLOGICAL: Gross neurological examination did not reveal any focal deficits. SKIN: No rashes. Laboratory data significant for improving liver enzymes, but bilirubin remains stable. ASSESSMENT AND PLAN: 1. Epigastric abdominal pain secondary to gastritis, which improved at this point of time. Elevated liver enzymes, further work-up as mentioned in the interval history and bacteremia with hemolytic streptococci. Work-up as mentioned above. The most common source of hemolytic streptococci infection is perioral or dental infections and pneumonia, although [place] valve endocarditis is rare with streptococci. Will also consult Infectious Disease as mentioned above. 2. Hypertension. 3. Gastroesophageal reflux disease. 4. Type 2 diabetes mellitus. Patient is awaiting MRCP tomorrow morning.
[2016-09-08 16:52] LABS: Glucose,Whole Blood 211 mg/dL (75-99)
[2016-09-08 21:01] LABS: Glucose,Whole Blood 132 mg/dL (75-99)
[2016-09-08] MEDS: SODIUM CHLORIDE 0.9% 1,000 ML IV SCH ×2 (21:05→21:28)
[2016-09-09] MEDS ORDERED: VANCOMYCIN TROUGH DUE 1 EACH MISC MISCELLANE ONE (05:00)
[2016-09-09] MEDS: SODIUM CHLORIDE 0.9% 1,000 ML IV SCH ×2 (06:04→23:39)
[2016-09-09 07:25] LABS: Glucose,Whole Blood 74 mg/dL (75-99)
[2016-09-09 08:16] LABS: Basophils # (A) 0.1 k/uL (0-0.2); Basophils % (A) 1 %; CH 24.6; CHCM 30.4; Eosinophils # (A) 0.4 k/uL (0-0.7); Eosinophils % (A) 4 %; HCT 38.3 % (39.0-53.0); HDW 2.89; HGB 11.4 gm/dL (13.0-17.5); Hypochromasia Marked; Luc # (Auto) 0.39; Luc % (Auto) 4; Lymphocytes # (A) 2.4 k/uL (1.0-4.8); Lymphocytes % (A) 28 %; MCH 24.2 pg (25.0-35.0); MCHC 29.7 g/dL (31.0-37.0); MCV 81.4 fL (80.0-100.0); Mean Platelet Volume 7.3; Monocytes # (A) 0.6 k/uL (0-1.0); Monocytes % (A) 7 %; Neutrophils % (A) 56 %; RBC 4.71 m/uL (4.30-5.90); RDW 15.8 % (11.5-15.5); WBC 8.9 k/uL (3.8-10.6); WBC (Perox) 9.05
[2016-09-09 08:38] LABS: ALT 119 U/L (21-72); AST 105 U/L (17-59); Alkaline Phosphatase 179 U/L (38-126); Anion Gap 13 mmol/L; Bilirubin, Delta 1.1 mg/dL (0.0-0.2); Blood Urea Nitrogen 14 mg/dL (9-20); Calcium 9.1 mg/dL (8.4-10.2); Carbon Dioxide 24 mmol/L (22-30); Chloride 108 mmol/L (98-107); Glucose 77 mg/dL (74-99); Non-African American GFR(MDRD) >60 (>60 ml/min/1.73 sqM); Potassium 4.1 mmol/L (3.5-5.1); Sodium 145 mmol/L (137-145); Total Bilirubin 2.4 mg/dL (0.2-1.3); Total Protein 6.3 g/dL (6.3-8.2)
[2016-09-09] MEDS: INSULIN LISPRO (humaLOG) 300 UNIT/3 ML VIAL SQ SCH ×4 (08:41→20:30)
[2016-09-09] MEDS: LOSARTAN 25 MG TAB PO SCH (08:46)
[2016-09-09] MEDS: ASPIRIN 81 MG CHEW PO SCH (08:46)
[2016-09-09] MEDS: SIMETHICONE 80 MG CHEWABLE PO SCH (08:47)
[2016-09-09] MEDS: PANTOPRAZOLE 40 MG TABLET PO SCH ×2 (08:47→20:30)
[2016-09-09] MEDS: INSULIN GLARGINE 100 UNIT/ML 10 ML VIAL SQ SCH (08:53)
--- NOTE | 2016-09-09 10:50 | P.PN ---
Subjective 55-year-old male being seen on rounds with the attending. Currently resting in bed denying any abdominal discomfort when questioning. Reports no nausea vomiting. Labs were reviewed. The total bilirubin is down to 2.4 this morning. Was 6.1 the day before AST this morning 105 was 221 the day before ALT 119 down from 153 the day before the liver enzymes are slowly improving. Currently patient is to be evaluated by GI service. As part of a workup for the elevated liver enzymes Objective - Vital Signs Vital signs: Vital Signs Temp 97.1 F L 09/09/16 07:00 Pulse 82 09/09/16 07:00 Resp 20 09/09/16 07:00 BP 131/77 09/09/16 07:00 Pulse Ox 97 09/09/16 07:00 Intake & Output 09/08/16 09/09/16 09/09/16 18:59 06:59 18:59 Intake Total 590 1100 Balance 590 1100 Intake: IV 1100 Sodium Chloride 0.9% 1, 1100 000 ml @ 100 mls/hr IV . Q10H MARCO ANTONIO Rx#:[id number] Oral 590 Other: Voiding Method Toilet Toilet # Voids 2 1 - Exam Physical exam 55-year-old gentleman resting in bed slightly jaundiced in appearance. Pleasant cooperative oriented 3 Lungs essentially clear adequate air movement Heart S1-S2 audible no murmur noted regular Abdomen mild tenderness slightly distended reports no nausea vomiting states urinating no difficulty no frequent stooling Extremities no evidence of edema to the upper or lower extremities - Labs CBC & Chem 7: 09/09/16 07:21 09/09/16 07:21 Labs: Abnormal Lab Results - Last 24 Hours (Table) 09/08/16 09/08/16 09/08/16 Range/Units 12:36 16:51 21:00 Hgb (13.0-17.5) gm/dL Hct (39.0-53.0) % MCH (25.0-35.0) pg MCHC (31.0-37.0) g/dL RDW (11.5-15.5) % Chloride (98-107) mmol/L POC Glucose (mg/dL) 102 H 211 H 132 H (75-99) mg/dL Total Bilirubin (0.2-1.3) mg/dL Unconjugated Bilirubin (0.0-1.1) mg/dL Delta Bilirubin (0.0-0.2) mg/dL AST (17-59) U/L ALT (21-72) U/L Alkaline Phosphatase (38-126) U/L 09/09/16 09/09/16 09/09/16 Range/Units 07:03 07:21 07:21 Hgb 11.4 L (13.0-17.5) gm/dL Hct 38.3 L (39.0-53.0) % MCH 24.2 L (25.0-35.0) pg MCHC 29.7 L (31.0-37.0) g/dL RDW 15.8 H (11.5-15.5) % Chloride 108 H (98-107) mmol/L POC Glucose (mg/dL) 74 L (75-99) mg/dL Total Bilirubin 2.4 H (0.2-1.3) mg/dL Unconjugated Bilirubin 1.3 H (0.0-1.1) mg/dL Delta Bilirubin 1.1 H (0.0-0.2) mg/dL AST 105 H (17-59) U/L ALT 119 H (21-72) U/L Alkaline Phosphatase 179 H (38-126) U/L Microbiology - Last 24 Hours (Table) 09/08/16 07:13 Blood Culture - Preliminary Blood No Growth after 24 hours 09/07/16 17:39 Blood Culture - Preliminary Blood No Growth after 24 hours Assessment and Plan Plan: Impression Present on admission acute jaundice unclear etiology elevated liver enzymes Present on admission nausea vomiting resolving Type 2 diabetes History of laparoscopic cholecystectomy for acute calculus cholecystitis done Plan Await further recommendations by GI service as part of the workup for the elevated liver enzymes and epigastric discomfort Continue to pursue the workup for the elevated liver enzymes and jaundice from a surgical perspective the does not appear to be any surgical options for jaundice transfer care to internal medicine No further surgical recommendations at this time will sign off reevaluated as indicated The above dictated assessment and findings were discussed with dr taylor Marcano and the plan of care have been dictated as directed. Cait Villa nurse practitioner acting as a scribe for dr vazquez
[2016-09-09 10:54] LABS: Glucose,Whole Blood 214 mg/dL (75-99)
[2016-09-09] MEDS ORDERED: IV VANCOMYCIN PER PHARMACY 1 EACH MISC MISCELLANE PRN (12:38)
--- NOTE | 2016-09-09 12:43 | CONS ---
DATE OF CONSULTATION: 09/08/2016 REASON FOR CONSULTATION: Bacteremia. HISTORY OF PRESENT ILLNESS: The patient is a 55-year-old male, patient is status post laparoscopic cholecystectomy done by Dr. Boyer about a month ago. The patient was doing well, however, started having abdominal pain. Pain is mostly in the left upper abdomen area, describing the pain to be sharp, almost 10 out of 10 in severity. The patient has vomiting and nausea with it. Patient denies any high-grade fever though. Subsequently with these symptoms, the patient was evaluated by the ER physician where the patient did have CT of abdomen and pelvis without contrast, did show some post cholecystectomy changes and with possible post surgical changes. The patient also had an ultrasound of the abdomen which did show cholecystectomy. No dilated ducts. No focal deficits and no free fluid. The patient did have a normal white count on admission of 10.5; however, the patient liver enzymes were elevated with a bilirubin of 6 and ALT elevated. The patient did have blood cultures obtained in the ER on 09/06 which has come back positive for streptococcus. The patient was started on Rocephin. I was asked to see the patient for further recommendation regarding antibiotic therapy. No fever has been recorded. The patient's abdominal pain has improved though. The patient denies any headache, denies any chest pain, shortness of breath. No cough. No further nausea, vomiting or any diarrhea. REVIEW OF SYSTEMS: CONSTITUTIONAL: Positive for weakness and some chills. No fever. EYES: No complaint. ENT: No complaint. RESPIRATORY: No complaint. CARDIOVASCULAR: No complaint. GENITOURINARY: No complaint. GASTROINTESTINAL: As per HPI. MUSCULOSKELETAL: No complaint. INTEGUMENTARY: No complaint. PSYCHOLOGICAL: No complaint. ENDOCRINE: No complaint. NEUROLOGIC: No complaint. PAST MEDICAL HISTORY: Diabetes mellitus. PAST SURGICAL HISTORY: Cholecystectomy, hernia repair, bilateral cataract implant. SOCIAL HISTORY: No history of smoking, drinking or drug use. FAMILY HISTORY: Father with history of diabetes and leukemia. Mother with history of cancer of the spine. ALLERGIES: HYDROMORPHONE AND MORPHINE. Medications include the patient currently on: 1. Aspirin. 2. Ceftriaxone. 3. Flexeril. 4. Dilaudid. 5. Lantus. 6. Humalog. 7. Cozaar. 8. Antivert. 9. Narcan. 10. Zofran. 11. Protonix. 12. IV fluid. On examination, blood pressure is 130/74 with a pulse of 96, temperature 98. He is 96% on room air. General description is a middle-age male lying in bed in no distress. HEENT examination shows oral mucosa membranes dry. NECK: Trachea central, no thyromegaly. LUNGS: Unlabored breathing. Clear to auscultation anteriorly. No wheeze or crackle. HEART: S1, S2 regular rate and rhythm. ABDOMEN: Soft, no tenderness. No guarding or rigidity. EXTREMITIES: No edema of the feet. SKIN EXAMINATION: No rash. No mass palpable. NEUROLOGICAL: Patient awake, alert, oriented x3. Mood and affect normal. LABS: Hemoglobin is 11.5, white count 9.7, BUN of 12, creatinine 1.11. Electrolytes have been normal. Liver enzymes are elevated. Urine has been negative. Serology hepatitis A, B, and C negative. CT and ultrasound report as mentioned earlier. DIAGNOSTIC IMPRESSION AND PLAN: Patient with bacteremia in a patient main symptom has been abdominal pain. The patient who did have recent laparoscopic cholecystectomy done now presenting with an obstructive jaundice with a question of possible stricture with associated ascending cholangitis to be the cause of his bacteremia not entirely excluded as the patient has no other clinically focus of infection. Lungs were clear to auscultation. No significant cellulitis was noticed. Urinalysis has been clear. PLAN: 1. We will repeat blood cultures x1 to make sure no evidence of any persistent bacteremia. 2. We will await the M.R.C.P. and we will review the CT scan with the radiologist. 3. Continue the patient on Rocephin at this point. 4. Will follow up on the clinical condition and these investigations to further adjust the medication if needed. Thank you for this consultation. We will follow patient along with you. CHANTAL
[2016-09-09] MEDS ORDERED: LEVOFLOXACIN 750MG-D5W PMX 750 MG in DEXTROSE/WATER 1 150ML.BAG IVPB SCH (13:00)
[2016-09-09 14:49] LABS: C-ANCA <1:20 Titer (<1:20); P-ANCA <1:20 Titer (<1:20)
[2016-09-09] MEDS: VANCOMYCIN 1,750 MG in SODIUM CHLORIDE 0.9% 250 ML IVPB SCH (16:58)
[2016-09-09 17:08] LABS: Glucose,Whole Blood 151 mg/dL (75-99)
[2016-09-09] MEDS: cefTRIAXone 2,000 MG in SODIUM CHLORIDE 0.9% 100 ML IVPB SCH (17:57)
--- NOTE | 2016-09-09 19:06 | PN ---
This patient is a 55-year-old admitted with epigastric abdominal pain secondary to gastritis which improved with Protonix. Patient also has elevated liver enzymes. Patient has blood cultures positive for hemolytic streptococci, beta-hemolytic streptococci, which is Strep oralis. Patient was started on Rocephin, but unfortunately patient is resistant to Rocephin, because of which I started him on Levaquin, and Dr. Woodard was consulted. Patient does not have any pneumonic process. Patient's source of infection is probably dental in origin. No other source of infection was identified. Patient is otherwise clinically doing well. If blood cultures continue to be positive that were drawn from yesterday, patient will be discharged tomorrow. REVIEW OF SYSTEMS: CARDIOVASCULAR: No chest pain, no orthopnea, no PND, no palpitations. PULMONARY: Denied any shortness of breath. No cough or hemoptysis. GASTROINTESTINAL: No diarrhea, nausea or vomiting. No abdominal pain. Normoactive bowel sounds. NEUROLOGIC: No headaches, no weakness, no numbness. Medications were reviewed. PHYSICAL EXAMINATION: VITAL SIGNS: Temperature 97.1, pulse of 82, respiratory rate of 20. Blood pressure is 131/77. Saturating at 97% on room air. GENERAL: The patient is alert and oriented x3, not in any acute distress. Well developed, well nourished. HEENT: Pupils are round and equally reacting to light. EOMI. No scleral icterus. No conjunctival pallor. Normocephalic, atraumatic. No pharyngeal erythema. No thyromegaly. CARDIOVASCULAR: S1 and S2 present. No murmurs, rubs, or gallops. PULMONARY: Chest is clear to auscultation, no wheezing or crackles. ABDOMEN: Soft, nontender, nondistended, normoactive bowel sounds. No palpable organomegaly. MUSCULOSKELETAL: No joint swelling or deformity. EXTREMITIES: No cyanosis, clubbing, or pedal edema. NEUROLOGICAL: Gross neurological examination did not reveal any focal deficits. SKIN: No rashes. LABORATORY DATA: CBC, CMP are abnormal for total bilirubin of 2.9, AST of 105, ALT of 119. ASSESSMENT AND PLAN: 1. Epigastric abdominal pain secondary to gastritis. 2. Hyperbilirubinemia, both direct and indirect; unsure of the exact etiology, but bilirubin is coming down. Patient may not need M.R.C.P. or any further evaluation, as this is coming down. It is probably related to the medications that were used during his gallbladder removal surgery. 3. Hypertension. 4. Gastroesophageal reflux disease. 5. Sepsis and bacteremia with Strep oralis. Management as mentioned above.
[2016-09-09 20:08] LABS: Glucose,Whole Blood 160 mg/dL (75-99)
[2016-09-09 22:27] VITALS: RESP 16
[2016-09-10] MEDS: VANCOMYCIN 1,750 MG in SODIUM CHLORIDE 0.9% 250 ML IVPB SCH (03:58)
[2016-09-10] MEDS: SODIUM CHLORIDE 0.9% 1,000 ML IV SCH (04:56)
--- NOTE | 2016-09-10 06:37 | PN ---
DATE OF SERVICE: 09/09/2016 Reason for followup is bacteremia. INTERVAL HISTORY: The patient is afebrile. His abdominal pain has resolved. The patient denies having any chest pain or shortness of breath or cough. No abdominal pain or diarrhea. The patient had no history of any recent dental work up. On examination, blood pressure is 138/79 with a pulse of 80, temperature 97.6. He is 96% on room air. General description is a middle-age male lying in bed in no distress. HEENT EXAMINATION: With poor dentition, but no gingivitis. LUNGS: Unlabored breathing. Clear to auscultation. HEART: S1, S2. Regular rate and rhythm. No murmur. ABDOMEN: Soft, no tenderness. EXTREMITIES: No edema of feet. LABS: Hemoglobin is 11.4, white count 8.9 with a BUN of 14, creatinine 1.14. His liver enzymes did improve slightly. Blood culture with Streptococcus mitis oralis that has been resistant to Rocephin the patient has been on. DIAGNOSTIC IMPRESSION AND PLAN: Patient with Streptococcus oralis bacteremia in a patient with no clear focus of infection and the patient not running any fever, did not have any elevated white count. the blood culture repeat has been negative, could more likely pointing towards a skin contamination. At this time would recommend obtaining an echocardiogram. If that is negative and follow-up blood culture negative, no further workup will be needed. Close outpatient followup. CHANTAL
[2016-09-10 08:04] VITALS: BP 153/99; PULSE 89; TEMP 98.2
[2016-09-10 08:08] LABS: Glucose,Whole Blood 122 mg/dL (75-99)
[2016-09-10] MEDS: INSULIN LISPRO (humaLOG) 300 UNIT/3 ML VIAL SQ SCH ×2 (10:02→12:25)
[2016-09-10] MEDS: LOSARTAN 25 MG TAB PO SCH (10:03)
[2016-09-10] MEDS: ASPIRIN 81 MG CHEW PO SCH (10:03)
[2016-09-10] MEDS: PANTOPRAZOLE 40 MG TABLET PO SCH (10:05)
[2016-09-10] MEDS: SIMETHICONE 80 MG CHEWABLE PO SCH (10:05)
[2016-09-10] MEDS: INSULIN GLARGINE 100 UNIT/ML 10 ML VIAL SQ SCH (10:10)
--- NOTE | 2016-09-10 10:50 | ECHOF ---
Referral Reason:Bacteremia MEASUREMENTS -------- HEIGHT: 182.9 cm WEIGHT: 106.6 kg BP: 131/77 RVIDd: 2.9 cm (< 3.3) IVSd: 1.3 cm (0.6 - 1.1) LVIDd: 4.7 cm (3.9 - 5.3) LVPWd: 1.1 cm (0.6 - 1.1) IVSs: 1.6 cm LVIDs: 3.6 cm LVPWs: 1.5 cm LA Diam: 3.1 cm (2.7 - 3.8) LAESV Index (A-L): 17.04 ml/m Ao Diam: 3.2 cm (2.0 - 3.7) AV Cusp: 1.6 cm (1.5 - 2.6) LA Diam: 2.7 cm (2.7 - 3.8) MV EXCURSION: 18.048 mm (> 18.000) MV EF SLOPE: 127 mm/s (70 - 150) EPSS: 0.7 cm MV E Gil: 0.66 m/s MV DecT: 221 ms MV A Gil: 0.58 m/s MV E/A Ratio: 1.13 FINDINGS -------- Sinus rhythm. This was a technically good study. The left ventricular size is normal. There is mild concentric left ventricular hypertrophy. Overall left ventricular systolic function is normal with, an EF between 60 - 65 %. The right ventricle is normal in size and function. The left atrium is normal in size. Normal LA size by volume 22+/-6 ml/m2. The right atrium is normal in size. There is mild aortic valve sclerosis. Mild mitral annular calcification present. Trace tricuspid regurgitation present. The pulmonic valve was not well visualized. The aortic root size is normal. There is no pericardial effusion. CONCLUSIONS -------- 1. Sinus rhythm. 2. Mild mitral annular calcification present. 3. Trace tricuspid regurgitation present. 4. The pulmonic valve was not well visualized. 5. The aortic root size is normal. 6. There is no pericardial effusion. 7. This was a technically good study. 8. The left ventricular size is normal. 9. There is mild concentric left ventricular hypertrophy. 10. Overall left ventricular systolic function is normal with, an EF between 60 - 65 %. 11. The right ventricle is normal in size and function. 12. Normal LA size by volume 22+/-6 ml/m2. 13. The right atrium is normal in size. 14. There is mild aortic valve sclerosis. [employer] OPERATOR: Noel Sampson RDCS
--- NOTE | 2016-09-10 11:08 | P.PN ---
Subjective Principal diagnosis: Elevated liver enzymes 55-year-old male admitted with elevated liver enzymes jaundice with abdominal pain with recent cholecystectomy. MRCP unable to be performed secondary to recent cholecystectomy. Liver enzymes improving; yesterday total bilirubin 2.4 mostly unconjugated. Repeat liver chemistries today are pending. Denies abdominal pain. Afebrile. Blood cultures on admission reported Streptococcus mitis/oralis repeat cultures no growth. Afebrile. Objective - Vital Signs Vital signs: Vital Signs Temp 98.2 F 09/10/16 07:00 Pulse 89 09/10/16 07:00 Resp 16 09/10/16 07:00 BP 153/99 09/10/16 07:00 Pulse Ox 99 09/10/16 07:00 Intake & Output 09/09/16 09/10/16 09/10/16 18:59 06:59 18:59 Other: Voiding Method Toilet Toilet # Voids 2 1 - Exam General appearance: The patient is alert, oriented, in no acute distress. HET: Head is normocephalic and atraumatic. Pupils are equal and reactive. Oropharynx is clear without lesions. Neck: Supple without lymphadenopathy. Trachea midline. Heart: S1 S2. Regular rate and rhythm. Lungs: No crackles or wheezes are heard. Abdomen: Soft, nontender, nondistended with bowel sounds. Laparoscopic incisions healing well without erythema or drainage. No peritoneal signs. No palpable organomegaly or masses. Extremities: Normal skin color and turgor. No cyanosis, rash, ulceration, clubbing, or edema. Radial and pedal pulses are 2/4 bilaterally. Neurological: No focal deficits. Strength and sensation are grossly intact. - Labs CBC & Chem 7: 09/09/16 07:21 09/09/16 07:21 Labs: Abnormal Lab Results - Last 24 Hours (Table) 09/09/16 09/09/16 09/10/16 Range/Units 17:02 20:06 08:06 POC Glucose (mg/dL) 151 H 160 H 122 H (75-99) mg/dL Microbiology - Last 24 Hours (Table) 09/08/16 07:13 Blood Culture - Preliminary Blood No Growth after 48 hours 09/09/16 07:21 Blood Culture - Preliminary Blood No Growth after 24 hours 09/07/16 17:39 Blood Culture - Preliminary Blood No Growth after 48 hours Assessment and Plan Plan: Impression : 1. 55-year-old gentleman recent cholecystectomy for acalculous cholecystitis presents with acute abdominal pain, elevated liver enzymes and jaundice with unclear etiology possible passage of microlithiasis. Additionally patient had positive blood cultures on admission with no clear source with repeat cultures showing no growth possible contaminant. Recommendations: 1. As long as liver chemistries continue to improve no further workup at this time. ERCP not planned at this time secondary to improvement in liver chemistries. Follow up with PCP as an outpatient with repeat liver enzymes in the next 3-5 days. 2. We'll follow as needed. Agreeable for discharge from GI standpoint if liver chemistries are stable this morning. Assessment and plan of care discussed with Dr. Norwood.
[2016-09-10 11:26] LABS: Glucose,Whole Blood 201 mg/dL (75-99)
--- NOTE | 2016-09-10 12:14 | PN ---
DATE OF SERVICE: 09/10/2016 Reason for followup is bacteremia. INTERVAL HISTORY: The patient is afebrile. He is currently feeling better. Breathing comfortably. Denies having any chest pain or shortness of breath. No cough, no abdominal pain, no nausea, vomiting or any diarrhea. On examination, blood pressure is 153/99 with a pulse of 89, temperature 98.2, he is 99% on room air. General description is a middle-age male, lying in bed in no distress. HEENT EXAMINATION: Some poor dentition. LUNGS: Unlabored breathing. Clear to auscultation anteriorly. HEART: S1, S2. Regular rate and rhythm. ABDOMEN: Soft, no tenderness. LABS: Hemoglobin 11.4, white count 8.9. Followup blood culture has been negative 09/07, 09/08 and 09/09. DIAGNOSTIC IMPRESSION AND PLAN: Patient with positive blood culture when he presented to the ER with abdominal pain. On 09/06, both of these cultures were drawn in the ER with Streptococcus mitis/oralis, that is resistant to ceftriaxone that the patient was on. Followup blood culture has been subsequently negative, pointing more towards a contamination rather than true bacteremia. The patient not running any fever. Denies having an elevated white count. He did have pain when CT abdomen when was negative for any inflammation and the echocardiogram negative for any involvement of the heart meyer. May give a short course of oral Levaquin to clearly see how the clinical thing is more for contamination. Will do a followup blood culture in outpatient setting when the patient is off antibiotics to make sure there is no evidence of any recurrence of bacteria. I discussed in detail with the patient, as well as attending physician has been advised if any recurrence of fever or any symptoms, to call us as soon as possible.
[2016-09-10] MEDS ORDERED: VANCOMYCIN 1,750 MG in SODIUM CHLORIDE 0.9% 250 ML IVPB SCH (16:00)
[2016-09-11] MEDS ORDERED: VANCOMYCIN TROUGH DUE 1 EACH MISC MISCELLANE ONE (03:00)
--- NOTE | 2016-09-11 07:15 | DS ---
DATE OF ADMISSION: 09/06/2016 DATE OF DISCHARGE: 09/10/2016 Patient is a 55-year-old admitted with epigastric abdominal pain secondary to gastritis, which improved with Protonix and patient also had elevated liver enzymes probably related to the medications that were used during his gallbladder surgery and bilirubin and liver enzymes improved. Patient may not need any further evaluation, but will need to follow with Dr. Norwood as an outpatient at last for one time, make sure the liver enzymes are stable and make sure patient will not need any further work-up and patient has a bacteremia. This is questionable whether this is a labile or a real bacteremia, but anyways it showed strep mitis and strep oralis without any other signs or symptoms of endocarditis or pneumonia and patient did get an echocardiogram, which was within normal limits and the suspicion of endocarditis is significantly low, because of which no further intervention is being planned at this point of time. Patient will follow with Dr. Woodard as an outpatient where he will repeat the blood cultures again. For far the blood cultures are negative and patient will be discharged on levofloxacin for 10 days and the organism is resistant to at least second and third generation cephalosporins and patient will follow with Dr. Cool in 10 days; Dr. Norwood in one week, primary care physician Tatianna Lerner in [address] Janna Woodard in 2 weeks and patient was seen and examined on the day of discharge. Vitals are stable. PHYSICAL EXAMINATION: GENERAL: The patient is alert and oriented x3, not in any acute distress. Well developed, well nourished. HEENT: Pupils are round and equally reacting to light. EOMI. No scleral icterus. No conjunctival pallor. Normocephalic, atraumatic. No pharyngeal erythema. No thyromegaly. CARDIOVASCULAR: S1 and S2 present. No murmurs, rubs, or gallops. PULMONARY: Chest is clear to auscultation, no wheezing or crackles. ABDOMEN: Soft, nontender, nondistended, normoactive bowel sounds. No palpable organomegaly. MUSCULOSKELETAL: No joint swelling or deformity. EXTREMITIES: No cyanosis, clubbing, or pedal edema. NEUROLOGICAL: Gross neurological examination did not reveal any focal deficits. SKIN: No rashes. MEDICATIONS: Please refer to my depart summary. FINAL DIAGNOSES: 1. Epigastric abdominal pain due to gastritis, secondary to hyperbilirubinemia, secondary to intrahepatic biliary status secondary to medications. 2. Hypertension. 3. Gastroesophageal reflux disease, sepsis and bacteremia with strep oralis. Spent greater than 35 minutes in total discharge process. Activity as tolerated. Cardiac and diabetic 1800 calorie diet.
== END 2016-09-10 13:57 | disposition home or self-care (01) | DRG 392 ==
LOC: EC 17:36 → 4MS4W 22:15 → 5MS5E 22:31
PROVIDERS: ADMIT Hospitalist; ATTEND Hospitalist
DX: K29.70 Gastritis, unspecified, without bleeding (principal); R78.81 Bacteremia; I10 Essential (primary) hypertension; K21.9 Gastro-esophageal reflux disease without esophagitis; R74.8 Abnormal levels of other serum enzymes; E11.9 Type 2 diabetes mellitus without complications; Z98.42 Cataract extraction status, left eye; Z98.41 Cataract extraction status, right eye; Z96.1 Presence of intraocular lens; Z90.49 Acquired absence of other specified parts of digestive tract; Z79.84 Long term (current) use of oral hypoglycemic drugs; Z79.82 Long term (current) use of aspirin; Z79.4 Long term (current) use of insulin; Z79.899 Other long term (current) drug therapy
CPT/HCPCS: 36415; 71020; 74177; 76705; 80053; 80074; 81003; 82150; 82248; 83036; 83605; 83690; 83735; 84100; 85025; 86038; 86255; 87040; 87077; 87086; 87186; 93306; 96361; 96374; 99285

== ENCOUNTER 2019-03-28 10:38 | Inpatient (IN) | payer OTHER ==
[2019-03-28] MEDS ORDERED: SODIUM CHLORIDE 0.9% 1,000 ML IV STA (11:21)
[2019-03-28] MEDS ORDERED: KETOROLAC 30 MG/ML 1 ML VIAL IVP STA (11:21)
--- NOTE | 2019-03-28 11:27 | ED ---
General Adult HPI - General Chief complaint: Urogenital Stated complaint: POSS KIDNEY STONE Time Seen by Provider: 03/28/19 11:13 Source: patient, RN notes reviewed Mode of arrival: ambulatory Limitations: no limitations - History of Present Illness Initial comments: 58-year-old male presents to the emergency department for a chief complaint of left flank pain and low back pain for the past 2 days. Patient states history of kidney stones and is concerned he may have a kidney stone. Patient has been taking naproxen without relief. Patient denies any radiating pain. Denies any abdominal or testicle pain. Denies any nausea or vomiting.Patient has no other complaints at this time including shortness of breath, chest pain, nausea or vomiting, headache, or visual changes. - Related Data Home Medications Medication Instructions Recorded Confirmed Aspirin 81 mg PO DAILY 08/11/16 09/06/16 Cyclobenzaprine [Flexeril] 5 mg PO TID PRN 08/11/16 09/06/16 Insulin Glargine [Lantus] 35 unit SQ DAILY 08/11/16 09/06/16 Losartan [Cozaar] 12.5 tab PO DAILY 08/11/16 09/06/16 Meclizine [Antivert] 12.5 mg PO DAILY PRN 08/11/16 09/06/16 metFORMIN HCL [metFORMIN HCL ER] 1,000 mg PO BID 08/11/16 09/06/16 Simethicone [Gas-X] 250 mg PO DAILY 09/06/16 09/06/16 Previous Rx's Medication Instructions Recorded Levofloxacin [Levaquin] 750 mg PO DAILY #10 tab 09/10/16 Omeprazole 40 mg PO DAILY #30 capsule. 09/13/16 Allergies Allergy/AdvReac Type Severity Reaction Status Date / Time hydromorphone [From Dilaudid] AdvReac Nausea Verified 03/28/19 11:06 morphine AdvReac Nausea Verified 03/28/19 11:06 Review of Systems ROS Statement: Those systems with pertinent positive or pertinent negative responses have been documented in the HPI. ROS Other: All systems not noted in ROS Statement are negative. Past Medical History Past Medical History: Diabetes Mellitus, GERD/Reflux Additional Past Medical History / Comment(s): neck and back pain, vertigo, type 2 DM History of Any Multi-Drug Resistant Organisms: None Reported Past Surgical History: Cholecystectomy, Hernia Repair Additional Past Surgical History / Comment(s): BILATERAL CATARACT IMPLANTS Past Anesthesia/Blood Transfusion Reactions: No Reported Reaction Past Psychological History: No Psychological Hx Reported Smoking Status: Never smoker Past Alcohol Use History: None Reported Past Drug Use History: None Reported - Past Family History Father Family Medical History: Diabetes Mellitus Additional Family Medical History / Comment(s): LEUKEMIA Mother Additional Family Medical History / Comment(s): CANCER SPINE General Exam Limitations: no limitations General appearance: alert, in no apparent distress Head exam: Present: atraumatic, normocephalic, normal inspection Eye exam: Present: normal appearance, PERRL, EOMI. Absent: scleral icterus, conjunctival injection, periorbital swelling ENT exam: Present: normal exam, mucous membranes moist Neck exam: Present: normal inspection, full ROM. Absent: tenderness, meningismus, lymphadenopathy Respiratory exam: Present: normal lung sounds bilaterally. Absent: respiratory distress, wheezes, rales, rhonchi, stridor Cardiovascular Exam: Present: regular rate, normal rhythm, normal heart sounds. Absent: systolic murmur, diastolic murmur, rubs, gallop, clicks GI/Abdominal exam: Present: soft, normal bowel sounds. Absent: distended, tenderness, guarding, rebound, rigid Extremities exam: Present: full ROM (Full Range of motion of the left leg.), normal capillary refill (Capillary refill less than 2 seconds, DP pulse 2+ and left lower extremity) Back exam: Absent: CVA tenderness (R), CVA tenderness (L) Neurological exam: Present: alert, oriented X3 Psychiatric exam: Present: normal affect, normal mood Course Vital Signs 03/28/19 11:07 Temperature 98.2 F Pulse Rate 110 H Respiratory 18 Rate Blood Pressure 149/90 O2 Sat by Pulse 99 Oximetry Medical Decision Making - Medical Decision Making 58-year-old male presents to the emergency department for a chief complaint of left flank pain. This has been ongoing for about 3 days. States the pain is more down in the lower back as well on the left side. CT does have a history of kidney stones. On exam no abdominal tenderness. No CVA tenderness. CBC does show a white count of 13.5, likely reactive. CMP does show mild acidosis with a creatinine of 2.13. This is above patient's baseline. BUN to creatinine ratio does demonstrate possible intrarenal cause. Patient denies any history of kidney disease, is a diabetic. CT does show 2 distal left ureteral calculi causing mild hydronephrosis and hydroureter on the left. Upon review of the computed t omography scan these are 4.36 mm and 4.31 mm. Given acute kidney injury and ureterolithiasis patient will be admitted for nephrology consult, urology consult, and further evaluation. - Lab Data Result diagrams: 03/28/19 11:23 03/28/19 11:23 Lab Results 03/28/19 03/28/19 03/28/19 Range/Units 11:23 11:23 11:47 WBC 13.5 H (3.8-10.6) k/uL RBC 4.49 (4.30-5.90) m/uL Hgb 10.8 L (13.0-17.5) gm/dL Hct 34.6 L (39.0-53.0) % MCV 77.1 L (80.0-100.0) fL MCH 24.1 L (25.0-35.0) pg MCHC 31.3 (31.0-37.0) g/dL RDW 17.4 H (11.5-15.5) % Plt Count 308 (150-450) k/uL Neutrophils % 66 % Lymphocytes % 23 % Monocytes % 5 % Eosinophils % 2 % Basophils % 0 % Neutrophils # 9.0 H (1.3-7.7) k/uL Lymphocytes # 3.1 (1.0-4.8) k/uL Monocytes # 0.6 (0-1.0) k/uL Eosinophils # 0.3 (0-0.7) k/uL Basophils # 0.0 (0-0.2) k/uL Hypochromasia Moderate Anisocytosis Slight Microcytosis Slight Sodium 141 (137-145) mmol/L Potassium 5.1 (3.5-5.1) mmol/L Chloride 109 H (98-107) mmol/L Carbon Dioxide 20 L (22-30) mmol/L Anion Gap 12 mmol/L BUN 25 H (9-20) mg/dL Creatinine 2.13 H (0.66-1.25) mg/dL Est GFR (CKD-EPI)AfAm 39 (>60 ml/min/1.73 sqM) Est GFR (CKD-EPI)NonAf 33 (>60 ml/min/1.73 sqM) Glucose 99 (74-99) mg/dL Calcium 9.5 (8.4-10.2) mg/dL Total Bilirubin 1.6 H (0.2-1.3) mg/dL AST 17 (17-59) U/L ALT 6 L (21-72) U/L Alkaline Phosphatase 66 (38-126) U/L Total Protein 6.3 (6.3-8.2) g/dL Albumin 3.9 (3.5-5.0) g/dL Amylase 79 (30-110) U/L Lipase 178 (23-300) U/L Urine Color Yellow Urine Appearance Clear (Clear) Urine pH 5.5 (5.0-8.0) Ur Specific Divide 1.029 (1.001-1.035) Urine Protein Trace H (Negative) Urine Glucose (UA) Negative (Negative) Urine Ketones Negative (Negative) Urine Blood Trace H (Negative) Urine Nitrite Negative (Negative) Urine Bilirubin Negative (Negative) Urine Urobilinogen <2.0 (<2.0) mg/dL Ur Leukocyte Esterase Negative (Negative) Urine RBC 2 (0-5) /hpf Urine WBC 2 (0-5) /hpf Ur Squamous Epith Cells <1 (0-4) /hpf Urine Mucus Rare H (None) /hpf Disposition Clinical Impression: Acute kidney injury, Leukocytosis, Ureterolithiasis Disposition: ADMITTED IP TO THIS HOSP Condition: Fair Is patient prescribed a controlled substance at d/c from ED?: No Referrals: Gris Lerner MD [Primary Care Provider] - 1-2 days Time of Disposition: 13:05
[2019-03-28 11:39] LABS: Anisocytosis Slight; Basophils % (A) 0 %; Eosinophils # (A) 0.3 k/uL (0-0.7); Eosinophils % (A) 2 %; HCT 34.6 % (39.0-53.0); HGB 10.8 gm/dL (13.0-17.5); Hypochromasia Moderate; Lymphocytes # (A) 3.1 k/uL (1.0-4.8); Lymphocytes % (A) 23 %; MCH 24.1 pg (25.0-35.0); MCHC 31.3 g/dL (31.0-37.0); MCV 77.1 fL (80.0-100.0); Mean Platelet Volume 7.9; Microcytosis Slight; Monocytes # (A) 0.6 k/uL (0-1.0); Monocytes % (A) 5 %; Neutrophils % (A) 66 %; Platelet Count 308 k/uL (150-450); RBC 4.49 m/uL (4.30-5.90); RDW 17.4 % (11.5-15.5); WBC 13.5 k/uL (3.8-10.6)
[2019-03-28 11:41] LABS: Albumin 3.9 g/dL (3.5-5.0); Calcium 9.5 mg/dL (8.4-10.2); Potassium 5.1 mmol/L (3.5-5.1); Total Bilirubin 1.6 mg/dL (0.2-1.3); Total Protein 6.3 g/dL (6.3-8.2)
[2019-03-28 12:25] LABS: Appearance,Urine Clear (Clear); Bilirubin,Urine Negative (Negative); Blood,Urine Trace (Negative); Color,Urine Yellow; Glucose,Urine (UA) Negative (Negative); Ketones,Urine Negative (Negative); Leukocyte Esterase,Urine Negative (Negative); Mucus,Urine Rare /hpf; Nitrite,Urine Negative (Negative); PH, Urine 5.5 (5.0-8.0); Protein,Urine Trace (Negative); RBC,Urine 2 /hpf (0-5); Specific Gravity,Urine 1.029 (1.001-1.035); Squamous Epithelial Cell,Urine <1 /hpf (0-4); Urobilinogen,Urine <2.0 mg/dL (<2.0); WBC,Urine 2 /hpf (0-5)
--- NOTE | 2019-03-28 12:34 | CT ---
EXAMINATION TYPE: CT abdomen pelvis wo con DATE OF EXAM: 03/28/2019 COMPARISON: Previous study dated 09/06/2016. HISTORY: Lt flank pain CT DLP: 854.4 mGycm Automated exposure control for dose reduction was used. FINDINGS: Visualized portions of the lungs are clear. There is no pleural or pericardial fluid. The h eart is not enlarged. There is a small, sliding hiatal hernia. Within the abdomen, the gallbladder is been removed. The liver and spleen are normal. Both adrenal glands are normal. The right kidney is normal. There is mild hydronephrosis on the left. There are 2 left ureteral calcu li Limited views of the pancreas are normal. The bladder is nondistended. There is an indirect inguinal hernia on the left containing fat only. There is no significant diverticular change and there is no radiographic evidence of diverticulosis. The appendix is normal. Small bowel loops are normal caliber. There is no free air and no free fluid. There is degenerative disc disease and a vacuum phenomena present at L5-S1. There is mild hypertrophi c spondylosis in the lower dorsal and lumbar spines. There is facet arthropathy in the lower lumbar s pine. IMPRESSION: 1. 2 DISTAL LEFT URETERIC CALCULI CAUSING MILD HYDRONEPHROSIS AND HYDROURETER ON THE LEFT. 2. SMALL SLIDING HIATAL HERNIA. 3. INDIRECT LEFT INGUINAL HERNIA CONTAINING FAT ONLY. 4. DEGENERATIVE CHANGES WITHIN THE SPINE.
[2019-03-28] MEDS ORDERED: NALOXONE 0.4 MG/ML 1 ML VIAL IV PRN (13:05)
[2019-03-28] MEDS ORDERED: MORPHINE SULFATE 2 MG/ML SYRINGE IVP SCH (13:15)
[2019-03-28] MEDS: SODIUM CHLORIDE 0.9% 1,000 ML IV SCH ×2 (13:21→20:51)
[2019-03-28 13:59] LABS: Glucose,Whole Blood 82 mg/dL (75-99)
[2019-03-28] MEDS: LOSARTAN 50 MG TAB PO SCH (15:21)
[2019-03-28] MEDS: HYDROcodone/APAP 5-325MG 1 EACH TAB PO PRN (15:22)
[2019-03-28 16:55] LABS: Glucose,Whole Blood 100 mg/dL (75-99)
[2019-03-28] MEDS: INSULIN ASPART (NovoLOG) 100 UNIT/ML VIAL SQ SCH ×2 (17:23→22:12)
[2019-03-28 22:11] LABS: Glucose,Whole Blood 101 mg/dL (75-99)
[2019-03-29] MEDS: ACETAMINOPHEN TAB 325 MG TAB PO PRN ×2 (01:53→07:47)
[2019-03-29] MEDS: SODIUM CHLORIDE 0.9% 1,000 ML IV SCH ×3 (06:26→19:29)
[2019-03-29 07:25] LABS: Glucose,Whole Blood 104 mg/dL (75-99)
--- NOTE | 2019-03-29 07:41 | P.GSCN ---
History of Present Illness Consult date: 03/29/19 History of present illness: The patient is a 58-year-old gentleman with one previous stone in 2009 who stated Friday developed left lower quadrant discomfort and left flank pain. It persisted and he came to the emergency room. A computed tomography scan was obtained identifying a 2 mm left ureteral stone in the distal ureter. He was admitted for pain control further evaluation. He has had no gross hematuria. He is in no fever or chills. He is much more comfortable this morning. He passes previous stone. Review of Systems All systems: negative - Constitutional Denies fever, Denies weight loss - EENT Eyes: denies blurred vision Ears, nose, mouth and throat: Denies dysphagia - Cardiovascular Denies chest pain, Denies shortness of breath - Respiratory Denies cough, Denies 7 - Gastrointestinal Reports as per HPI - Genitourinary Denies dysuria, Denies hematuria - Integumentary Denies rash, Denies unusual bruising - Neurological Denies headaches, Denies syncope - Hematologic/Lymphatic Denies easy bleeding, Denies easy bruising Past Medical History Past Medical History: Diabetes Mellitus, GERD/Reflux Additional Past Medical History / Comment(s): neck and back pain, vertigo, type 2 DM History of Any Multi-Drug Resistant Organisms: None Reported Past Surgical History: Cholecystectomy, Hernia Repair Additional Past Surgical History / Comment(s): BILATERAL CATARACT IMPLANTS Past Anesthesia/Blood Transfusion Reactions: No Reported Reaction Past Psychological History: No Psychological Hx Reported Smoking Status: Never smoker Past Alcohol Use History: None Reported Past Drug Use History: None Reported - Past Family History Father Family Medical History: Diabetes Mellitus Additional Family Medical History / Comment(s): LEUKEMIA Mother Additional Family Medical History / Comment(s): CANCER SPINE Medications and Allergies Home Medications Medication Instructions Recorded Confirmed Type Aspirin 81 mg PO DAILY 08/11/16 03/28/19 History Cyclobenzaprine [Flexeril] 5 mg PO TID PRN 08/11/16 03/28/19 History Meclizine [Antivert] 12.5 mg PO DAILY PRN 08/11/16 03/28/19 History metFORMIN HCL [metFORMIN HCL ER] 1,000 mg PO BID 08/11/16 03/28/19 History Omeprazole 40 mg PO DAILY #30 capsule. 09/13/16 03/28/19 Rx Atorvastatin [Lipitor] 40 mg PO HS 03/28/19 03/28/19 History Insulin NPH Human Isophane 17 units SQ BID 03/28/19 03/28/19 History [NovoLIN N] Losartan [Cozaar] 25 mg PO DAILY 03/28/19 03/28/19 History Ranitidine HCl [Zantac] 150 mg PO AC-SUPPER 03/28/19 03/28/19 History Allergies Allergy/AdvReac Type Severity Reaction Status Date / Time hydromorphone [From Dilaudid] AdvReac Nausea Verified 03/28/19 13:42 morphine AdvReac Nausea Verified 03/28/19 13:42 Surgical - Exam Vital Signs Temp Pulse Resp BP Pulse Ox 98.2 F 110 H 18 149/90 99 03/28/19 11:07 03/28/19 11:07 03/28/19 11:07 03/28/19 11:07 03/28/19 11:07 - General well developed, well nourished, no distress - Eyes PERRL - ENT no hearing loss - Neck no masses, trachea midline - Respiratory normal expansion, normal respiratory effort - Cardiovascular Rhythm: regular - Abdomen Abdomen: soft, non tender - Genitourinary normal penis with no external lesions, testicles present - Integumentary no rash, no growths - Neurologic normal coordination, normal sensation - Musculoskeletal normal posture - Psychiatric oriented to time, oriented to person, oriented to place, speech is normal, memory intact Results - Labs 03/28/19 11:23 03/28/19 11:23 Abnormal Lab Results - Last 24 Hours (Table) 03/28/19 03/28/19 03/28/19 Range/Units 11:23 11:23 11:47 WBC 13.5 H (3.8-10.6) k/uL Hgb 10.8 L (13.0-17.5) gm/dL Hct 34.6 L (39.0-53.0) % MCV 77.1 L (80.0-100.0) fL MCH 24.1 L (25.0-35.0) pg RDW 17.4 H (11.5-15.5) % Neutrophils # 9.0 H (1.3-7.7) k/uL Chloride 109 H (98-107) mmol/L Carbon Dioxide 20 L (22-30) mmol/L BUN 25 H (9-20) mg/dL Creatinine 2.13 H (0.66-1.25) mg/dL POC Glucose (mg/dL) (75-99) mg/dL Total Bilirubin 1.6 H (0.2-1.3) mg/dL ALT 6 L (21-72) U/L Urine Protein Trace H (Negative) Urine Blood Trace H (Negative) Urine Mucus Rare H (None) /hpf 03/28/19 03/28/19 03/29/19 Range/Units 16:52 22:03 07:23 WBC (3.8-10.6) k/uL Hgb (13.0-17.5) gm/dL Hct (39.0-53.0) % MCV (80.0-100.0) fL MCH (25.0-35.0) pg RDW (11.5-15.5) % Neutrophils # (1.3-7.7) k/uL Chloride (98-107) mmol/L Carbon Dioxide (22-30) mmol/L BUN (9-20) mg/dL Creatinine (0.66-1.25) mg/dL POC Glucose (mg/dL) 100 H 101 H 104 H (75-99) mg/dL Total Bilirubin (0.2-1.3) mg/dL ALT (21-72) U/L Urine Protein (Negative) Urine Blood (Negative) Urine Mucus (None) /hpf Diabetes panel 03/28/19 Range/Units 11:23 Sodium 141 (137-145) mmol/L Potassium 5.1 (3.5-5.1) mmol/L Chloride 109 H (98-107) mmol/L Carbon Dioxide 20 L (22-30) mmol/L BUN 25 H (9-20) mg/dL Creatinine 2.13 H (0.66-1.25) mg/dL Glucose 99 (74-99) mg/dL Calcium 9.5 (8.4-10.2) mg/dL AST 17 (17-59) U/L ALT 6 L (21-72) U/L Alkaline Phosphatase 66 (38-126) U/L Total Protein 6.3 (6.3-8.2) g/dL Albumin 3.9 (3.5-5.0) g/dL Calcium panel 03/28/19 Range/Units 11:23 Calcium 9.5 (8.4-10.2) mg/dL Albumin 3.9 (3.5-5.0) g/dL Pituitary panel 03/28/19 Range/Units 11:23 Sodium 141 (137-145) mmol/L Potassium 5.1 (3.5-5.1) mmol/L Chloride 109 H (98-107) mmol/L Carbon Dioxide 20 L (22-30) mmol/L BUN 25 H (9-20) mg/dL Creatinine 2.13 H (0.66-1.25) mg/dL Glucose 99 (74-99) mg/dL Calcium 9.5 (8.4-10.2) mg/dL Adrenal panel 03/28/19 Range/Units 11:23 Sodium 141 (137-145) mmol/L Potassium 5.1 (3.5-5.1) mmol/L Chloride 109 H (98-107) mmol/L Carbon Dioxide 20 L (22-30) mmol/L BUN 25 H (9-20) mg/dL Creatinine 2.13 H (0.66-1.25) mg/dL Glucose 99 (74-99) mg/dL Calcium 9.5 (8.4-10.2) mg/dL Total Bilirubin 1.6 H (0.2-1.3) mg/dL AST 17 (17-59) U/L ALT 6 L (21-72) U/L Alkaline Phosphatase 66 (38-126) U/L Total Protein 6.3 (6.3-8.2) g/dL Albumin 3.9 (3.5-5.0) g/dL - Imaging CT scan - abdomen: report reviewed, image reviewed CT scan - pelvis: report reviewed, image reviewed Assessment and Plan Assessment: Impression: Left ureteral calculus with colic, diabetes. Recommendations: I had a lengthy discussion about treatment options from spontaneous passage to surgical manipulation. We'll deliberating whether he wants anything done. Would encourage spontaneous passage. I will add tamsulosin to the regimen.
[2019-03-29] MEDS: TAMSULOSIN 0.4 MG CAP.ER.24H PO SCH (07:47)
[2019-03-29] MEDS: INSULIN ASPART (NovoLOG) 100 UNIT/ML VIAL SQ SCH ×4 (07:48→20:52)
[2019-03-29] MEDS: LOSARTAN 50 MG TAB PO SCH (07:48)
--- NOTE | 2019-03-29 08:33 | P.NPCON ---
History of Present Illness - Reason for Consult acute renal failure - History of Present Illness Reason for consultation: Acute kidney injury History of present illness: Patient is a 58-year-old male seen in renal consultation for acute kidney injury. Patient denies any prior history of kidney disease. Baseline creatinine is near 1. Creatinine was elevated at 2.13 on admission. Labs from today are pending at this time. Patient presented to the hospital with left- sided flank pain which started on Friday. Patient states he does have history of kidney stones and last passed a stone near 2009. CAT scan did reveal to left-sided ureteral stones. Patient denies any hematuria or dysuria. Denies a ny vomiting or diarrhea. He does admit to taking naproxen as needed for pain. He is currently maintained on IV fluids. Oral intake is good. Patient states he was diagnosed with diabetes about 5 years ago. Denies family history of renal disease. Vital signs are stable. General: The patient appeared well nourished and normally developed. HEENT: Head exam is unremarkable. Neck is without jugular venous distension. LUNGS: Lungs are clear to auscultation and percussion. Breath sounds decreased. HEART: Rate and Rhythm are regular. First and second heart sounds normal. No murmurs, rubs or gallops. ABDOMEN: Abdominal exam reveals normal bowel sounds. Non-tender and non- distended. No evidence of peritonitis. EXTREMITITES: No clubbing, cyanosis, or edema. Past Medical History Past Medical History: Diabetes Mellitus, GERD/Reflux Additional Past Medical History / Comment(s): neck and back pain, vertigo, type 2 DM History of Any Multi-Drug Resistant Organisms: None Reported Past Surgical History: Cholecystectomy, Hernia Repair Additional Past Surgical History / Comment(s): BILATERAL CATARACT IMPLANTS Past Anesthesia/Blood Transfusion Reactions: No Reported Reaction Past Psychological History: No Psychological Hx Reported Smoking Status: Never smoker Past Alcohol Use History: None Reported Past Drug Use History: None Reported - Past Family History Father Family Medical History: Diabetes Mellitus Additional Family Medical History / Comment(s): LEUKEMIA Mother Additional Family Medical History / Comment(s): CANCER SPINE Medications and Allergies Home Medications Medication Instructions Recorded Confirmed Type Aspirin 81 mg PO DAILY 08/11/16 03/28/19 History Cyclobenzaprine [Flexeril] 5 mg PO TID PRN 08/11/16 03/28/19 History Meclizine [Antivert] 12.5 mg PO DAILY PRN 08/11/16 03/28/19 History metFORMIN HCL [metFORMIN HCL ER] 1,000 mg PO BID 08/11/16 03/28/19 History Omeprazole 40 mg PO DAILY #30 capsule. 09/13/16 03/28/19 Rx Atorvastatin [Lipitor] 40 mg PO HS 03/28/19 03/28/19 History Insulin NPH Human Isophane 17 units SQ BID 03/28/19 03/28/19 History [NovoLIN N] Losartan [Cozaar] 25 mg PO DAILY 03/28/19 03/28/19 History Ranitidine HCl [Zantac] 150 mg PO AC-SUPPER 03/28/19 03/28/19 History Allergies Allergy/AdvReac Type Severity Reaction Status Date / Time hydromorphone [From Dilaudid] AdvReac Nausea Verified 03/28/19 13:42 morphine AdvReac Nausea Verified 03/28/19 13:42 Physical Exam Vitals: Vital Signs Temp Pulse Pulse Resp BP BP Pulse Ox 03/29/19 06:00 98.1 F 91 16 136/78 98 03/28/19 22:05 97.8 F 94 16 159/89 96 03/28/19 14:25 97.7 F 168/102 03/28/19 13:56 98 16 148/82 98 03/28/19 11:07 98.2 F 110 H 18 149/90 99 Intake and Output 03/28/19 03/29/19 03/29/19 22:59 06:59 14:59 Other: Voiding Method Toilet Toilet Toilet # Voids 2 1 Results - Lab Results Most recent lab results Calcium 9.5 mg/dL (8.4-10.2) 03/28/19 11:23 03/28/19 11:23 03/28/19 11:23 Assessment and Plan Plan: Assessment: 1. Acute kidney injury mostly prerenal secondary to nonsteroidals and valsartan. Creatinine was 2.13 on admission. Labs from today are pending. Trace proteinuria noted on UA. Mild left-sided hydronephrosis on CAT scan. 2. Left-sided nephrolithiasis. Urology following. No plans for surgical intervention at this time. 3. Insulin-dependent diabetes mellitus. 4. Benign hypertension. Controlled. 5. Metabolic acidosis secondary to acute kidney injury and IV fluids. 6. Rule out chronic kidney disease. Patient does have trace proteinuria on UA which is likely secondary to underlying diabetic kidney disease. Further workup outpatient. Plan: I would decrease the rate of normal saline to 70 mL an hour. Encourage oral intake. Avoid nephrotoxins. Avoid NSAIDs. Follow-up morning labs. Monitor bicarb. Thank you for the consultation. I will continue to follow the patient with you during his hospital stay.
[2019-03-29 10:11] LABS: Calcium 8.6 mg/dL (8.4-10.2); Magnesium 1.5 mg/dL (1.6-2.3)
[2019-03-29] MEDS: MAGNESIUM SULFATE-D5W PMX 1 GM in DEXTROSE/WATER 1 100ML.BAG IVPB SCH ×2 (11:45→12:47)
[2019-03-29 12:37] LABS: Glucose,Whole Blood 121 mg/dL (75-99)
[2019-03-29] MEDS: HYDROcodone/APAP 5-325MG 1 EACH TAB PO PRN ×2 (13:28→20:51)
[2019-03-29 13:36] LABS: Cholesterol 94 mg/dL (<200); HDL Cholesterol 37 mg/dL (40-60); LDL Cholesterol,Calculated 40 mg/dL (0-99); Triglycerides 86 mg/dL (<150)
[2019-03-29] MEDS: ASPIRIN-ACET-CAFF 250-250-65MG 1 EACH TAB PO PRN ×2 (14:55→19:29)
[2019-03-29 17:19] LABS: Glucose,Whole Blood 167 mg/dL (75-99)
[2019-03-29] MEDS ORDERED: FAMOTIDINE 20 MG TAB PO SCH (17:30)
[2019-03-29] MEDS: INSULIN NPH 300 UNIT/3 ML VIAL SQ SCH (17:48)
--- NOTE | 2019-03-29 20:03 | PN ---
PROGRESS NOTE CHIEF COMPLAINT: Left ureteral calculi and renal failure. HISTORY OF PRESENT ILLNESS: This gentleman is doing well. He still has a little bit of discomfort in the left low back. PHYSICAL EXAM: Abdomen is soft, nontender. Chest is clear. Cardiac exam is normal. IMPRESSION: 1. Left distal ureteral calculi. 2. Mild renal failure. 3. Type 2 NIDDM. PLAN: Continue to monitor stone progression while watching his renal function and blood sugars. MMODL / IJN: [id number] /
--- NOTE | 2019-03-29 20:03 | HP ---
HISTORY AND PHYSICAL CHIEF COMPLAINT: Left flank pain and renal failure. HISTORY OF PRESENT ILLNESS: This is the first known admission for this 58-year-old white male. He had a stone many years ago. He started to develop some pain in the left low back area radiating around toward the iliac crest and became quite severe and came to the emergency room where he was found to have 2 distal ureteral calculi and mild hydronephrosis. He otherwise has been in fairly good health. REVIEW OF SYSTEMS: He has had no fever, chills, neurologic problems, chest pain, shortness of breath, cough, hemoptysis, heart disease, murmurs, rheumatic fever, orthopnea, PND, abdominal pain, ulcer disease, nausea, vomiting, hematemesis, melena, hematochezia, colitis, diverticulosis, diverticulitis, hemorrhoids, jaundice, hepatitis, hematuria, renal failure, dysuria, incontinence, etc. Past medical history, family history and personal and social histories reveal he is ALLERGIC TO DILAUDID AND MORPHINE. His medications including: Aspirin, Lipitor, Flexeril, NPH 17 units twice a day, Imdur, metformin, Prilosec, Zantac. Surgically, he has had varicose vein procedure, cholecystectomy and herniorrhaphy. He does not smoke. PHYSICAL EXAM: Blood pressure is 149/90 with respirations of 20 and pulse of 76. He is afebrile. GENERAL: He appeared to be slightly overweight, in no acute distress. Skin color is normal. Skin is warm, dry. Lymph nodes not enlarged. Head, ears, eyes, nose, mouth, and throat were normal. Neck veins not distended. Thyroid not enlarged. CHEST: Clear. Cardiac exam is normal. Abdomen is soft, nontender. He is not particularly tender in the left flank. Extremities are normal. Neurologically he is intact. He is admitted to hospital with diagnoses: 1. Two left distal ureteral calculi. 2. Renal failure, BUN 22, and creatinine 2.05. 3. Hypomagnesemia (1.5). 4. Diabetes mellitus. 5. Hypertension. PLAN: 1. Bed rest. 2. IV fluids. 3. Analgesics. 4. Strain urine. MMODL / IJN: [id number] /
[2019-03-29 20:38] LABS: Glucose,Whole Blood 163 mg/dL (75-99)
[2019-03-29 22:37] LABS: Hemoglobin A1C 8.5 % (4.0-6.0)
[2019-03-30 01:08] LABS: Glucose,Whole Blood 63 mg/dL (75-99)
[2019-03-30] MEDS: HYDROcodone/APAP 5-325MG 1 EACH TAB PO PRN ×2 (01:10→05:53)
[2019-03-30 01:17] LABS: Glucose,Whole Blood 93 mg/dL (75-99)
--- NOTE | 2019-03-30 06:32 | P.PN ---
Subjective Progress Note Date: 03/30/19 The patient is in the hospital because of a 2 mm distal ureteral stone. He is feeling much better this morning. He does not lead he has passed a stone. From urologic standpoint he would like to go home to try to pass a stone. I think this is appropriate. I have given my card in case he has pain and needs to be dealt with sooner than his follow-up appointment which should be in one week. Objective - Vital Signs Vital signs: Vital Signs Temp 97.8 F 03/30/19 04:05 Pulse 89 03/30/19 04:05 Resp 20 03/30/19 04:05 BP 124/77 03/30/19 04:05 Pulse Ox 97 03/30/19 04:05 Intake & Output 03/29/19 03/29/19 03/30/19 06:59 18:59 06:59 Intake Total 750 300 Balance 750 300 Intake: Oral 750 300 Other: Voiding Method Toilet Toilet Toilet # Voids 1 3 1 - Labs CBC & Chem 7: 03/28/19 11:23 03/29/19 09:18 Labs: Abnormal Lab Results - Last 24 Hours (Table) 03/29/19 03/29/19 03/29/19 Range/Units 07:23 09:18 09:18 Chloride 109 H (98-107) mmol/L BUN 22 H (9-20) mg/dL Creatinine 2.05 H (0.66-1.25) mg/dL Glucose 123 H (74-99) mg/dL POC Glucose (mg/dL) 104 H (75-99) mg/dL Hemoglobin A1c 8.5 H (4.0-6.0) % Magnesium 1.5 L (1.6-2.3) mg/dL HDL Cholesterol (40-60) mg/dL 03/29/19 03/29/19 03/29/19 Range/Units 09:18 12:30 17:16 Chloride (98-107) mmol/L BUN (9-20) mg/dL Creatinine (0.66-1.25) mg/dL Glucose (74-99) mg/dL POC Glucose (mg/dL) 121 H 167 H (75-99) mg/dL Hemoglobin A1c (4.0-6.0) % Magnesium (1.6-2.3) mg/dL HDL Cholesterol 37 L (40-60) mg/dL 03/29/19 03/30/19 Range/Units 20:33 01:03 Chloride (98-107) mmol/L BUN (9-20) mg/dL Creatinine (0.66-1.25) mg/dL Glucose (74-99) mg/dL POC Glucose (mg/dL) 163 H 63 L (75-99) mg/dL Hemoglobin A1c (4.0-6.0) % Magnesium (1.6-2.3) mg/dL HDL Cholesterol (40-60) mg/dL
[2019-03-30 07:10] LABS: Glucose,Whole Blood 147 mg/dL (75-99)
[2019-03-30] MEDS: TAMSULOSIN 0.4 MG CAP.ER.24H PO SCH (07:21)
[2019-03-30] MEDS: LOSARTAN 50 MG TAB PO SCH (07:21)
[2019-03-30] MEDS: INSULIN NPH 300 UNIT/3 ML VIAL SQ SCH (07:22)
[2019-03-30] MEDS: INSULIN ASPART (NovoLOG) 100 UNIT/ML VIAL SQ SCH ×2 (07:22→12:26)
[2019-03-30] MEDS ORDERED: PANTOPRAZOLE 40 MG TABLET PO SCH (07:30)
[2019-03-30] MEDS ORDERED: LOSARTAN 25 MG TAB PO SCH (09:00)
[2019-03-30] MEDS ORDERED: ASPIRIN 81 MG PO SCH (09:00)
[2019-03-30 10:19] LABS: Calcium 8.6 mg/dL (8.4-10.2); Magnesium 2.1 mg/dL (1.6-2.3); Potassium 5.1 mmol/L (3.5-5.1)
[2019-03-30] MEDS ORDERED: CALCIUM CARBONATE 500 MG CHEWABLE PO PRN (10:27)
--- NOTE | 2019-03-30 10:45 | P.PN ---
Subjective Patient is seen in follow-up for acute kidney injury. Renal function is improving. Creatinine 1.85 today. Complaining of mild abdominal discomfort. No hematuria or dysuria. Oral intake is good. Urine output is good. Vital signs are stable. General: The patient appeared well nourished and normally developed. HEENT: Head exam is unremarkable. Neck is without jugular venous distension. LUNGS: Lungs are clear to auscultation and percussion. Breath sounds decreased. HEART: Rate and Rhythm are regular. First and second heart sounds normal. No murmurs, rubs or gallops. ABDOMEN: Abdominal exam reveals normal bowel sounds. Non-tender and non- distended. No evidence of peritonitis. EXTREMITITES: No clubbing, cyanosis, or edema. Objective - Vital Signs Vital signs: Vital Signs Temp 97.8 F 03/30/19 04:05 Pulse 89 03/30/19 04:05 Resp 20 03/30/19 04:05 BP 124/77 03/30/19 04:05 Pulse Ox 97 03/30/19 04:05 Intake & Output 03/29/19 03/30/19 03/30/19 18:59 06:59 18:59 Intake Total 750 300 Output Total 800 Balance 750 300 -800 Intake: Oral 750 300 Output: Urine 800 Other: Voiding Method Toilet Toilet Toilet # Voids 3 1 - Labs CBC & Chem 7: 03/28/19 11:23 03/30/19 09:28 Labs: Abnormal Lab Results - Last 24 Hours (Table) 03/29/19 03/29/19 03/29/19 Range/Units 09:18 09:18 12:30 Creatinine (0.66-1.25) mg/dL Glucose (74-99) mg/dL POC Glucose (mg/dL) 121 H (75-99) mg/dL Hemoglobin A1c 8.5 H (4.0-6.0) % HDL Cholesterol 37 L (40-60) mg/dL 03/29/19 03/29/19 03/30/19 Range/Units 17:16 20:33 01:03 Creatinine (0.66-1.25) mg/dL Glucose (74-99) mg/dL POC Glucose (mg/dL) 167 H 163 H 63 L (75-99) mg/dL Hemoglobin A1c (4.0-6.0) % HDL Cholesterol (40-60) mg/dL 03/30/19 03/30/19 Range/Units 07:07 09:28 Creatinine 1.85 H (0.66-1.25) mg/dL Glucose 167 H (74-99) mg/dL POC Glucose (mg/dL) 147 H (75-99) mg/dL Hemoglobin A1c (4.0-6.0) % HDL Cholesterol (40-60) mg/dL Assessment and Plan Plan: Assessment: 1. Acute kidney injury mostly prerenal secondary to nonsteroidals and valsartan. Creatinine was 2.13 on admission and is down to 1.85 today. Trace proteinuria noted on UA. Mild left-sided hydronephrosis on CAT scan. 2. Left-sided nephrolithiasis. Urology following. No plans for surgical intervention at this time. 3. Insulin-dependent diabetes mellitus. 4. Benign hypertension. Controlled. 5. Metabolic acidosis secondary to acute kidney injury and IV fluids. Better. 6. Rule out chronic kidney disease. Patient does have trace proteinuria on UA which is likely secondary to underlying diabetic kidney disease. Further workup outpatient. Plan: Hep-Lock IV fluids. Encouraged oral intake. Avoid nephrotoxins. Avoid NSAIDs. Stable for discharge from nephrology standpoint. Follow up outpatient in the next 1-2 weeks.
[2019-03-30 12:25] LABS: Glucose,Whole Blood 121 mg/dL (75-99)
[2019-03-30 12:57] VITALS: BP 145/92; PULSE 100; RESP 16; TEMP 98
--- NOTE | 2019-03-30 23:29 | DS ---
DISCHARGE SUMMARY CHIEF COMPLAINT: Left flank pain. HISTORY OF PRESENT ILLNESS AND PHYSICAL EXAM: The details of this man's history and physical can be found in the initial workup. LABORATORY STUDIES: While he was in the hospital, he had laboratory studies, details of which can be found in the laboratory section of his chart. COURSE IN HOSPITAL: After admission, he was placed on bedrest, started on intravenous fluids and analgesics. He was seen by Urology. The plan was to rule allow the left ureteral calculi to drop into the bladder. He was straining his urine in the hospital and nothing had been seen. He was doing well. It was felt he could go home on the , however, he will follow up in the office in a few days. FINAL DIAGNOSES: 1. Left distal ureteral calculi. 2. Acute renal failure. 3. Type 2 diabetes mellitus. OPERATIONS: None. CONSULTATIONS: Urology. He is improved. MMODL / KINZA: [id number] /
== END 2019-03-30 15:16 | disposition home or self-care (01) | DRG 694 ==
LOC: EC 10:38 → 4MS4W 13:38
PROVIDERS: ADMIT Family Medicine; ATTEND Family Medicine
DX: N13.2 Hydronephrosis with renal and ureteral calculous obstruction (principal); E87.2 Acidosis; N17.9 Acute kidney failure, unspecified; T39.395A Adverse effect of other nonsteroidal anti-inflammatory drugs [NSAID], initial encounter; D72.829 Elevated white blood cell count, unspecified; I12.9 Hypertensive chronic kidney disease with stage 1 through stage 4 chronic kidney disease, or unspecified chronic kidney disease; E11.22 Type 2 diabetes mellitus with diabetic chronic kidney disease; N18.9 Chronic kidney disease, unspecified; Z79.4 Long term (current) use of insulin; K21.9 Gastro-esophageal reflux disease without esophagitis; Z79.82 Long term (current) use of aspirin; Z79.899 Other long term (current) drug therapy; Z80.6 Family history of leukemia; Z83.3 Family history of diabetes mellitus; Z87.442 Personal history of urinary calculi; Z90.49 Acquired absence of other specified parts of digestive tract; Z98.42 Cataract extraction status, left eye; Z98.41 Cataract extraction status, right eye; Z96.1 Presence of intraocular lens; T46.5X5A Adverse effect of other antihypertensive drugs, initial encounter; E66.3 Overweight; Z68.31 Body mass index [BMI] 31.0-31.9, adult
CPT/HCPCS: 36415; 74176; 80048; 80053; 80061; 81001; 82150; 83036; 83690; 83735; 85025; 96361; 96374; 99285

== ENCOUNTER 2019-07-18 11:18 | Inpatient (IN) | payer OTHER ==
[2019-07-18] MEDS ORDERED: AMPICILLIN-SULBACTAM 3 GM in SODIUM CHLORIDE 0.9% 100 ML IVPB STA (12:14)
--- NOTE | 2019-07-18 12:17 | ED ---
General Adult HPI - General Chief complaint: Skin/Abscess/Foreign Body Stated complaint: abscess on neck Time Seen by Provider: 07/18/19 11:53 Source: patient, RN notes reviewed Mode of arrival: ambulatory Limitations: no limitations - History of Present Illness Initial comments: Patient is a pleasant 58-year-old male presenting to the emergency department with concern for sore on the neck. Patient states this is been occurring over a week. Patient states he did see his doctor 5 days ago and the sore was opened up. Since that time there has been some increased pain. Sore appears to be sticking out more however does nod seem to be spreading more. There also seems to be some more redness. No fevers. No history of similar symptoms previously. Patient is on Bactrim twice daily right now. Patient is diabetic. - Related Data Home Medications Medication Instructions Recorded Confirmed Aspirin 81 mg PO DAILY 08/11/16 03/28/19 Cyclobenzaprine [Flexeril] 5 mg PO TID PRN 08/11/16 03/28/19 Meclizine [Antivert] 12.5 mg PO DAILY PRN 08/11/16 03/28/19 metFORMIN HCL [metFORMIN HCL ER] 1,000 mg PO BID 08/11/16 03/28/19 Atorvastatin [Lipitor] 40 mg PO HS 03/28/19 03/28/19 Insulin NPH Human Isophane 17 units SQ BID 03/28/19 03/28/19 [NovoLIN N] Losartan [Cozaar] 25 mg PO DAILY 03/28/19 03/28/19 Ranitidine HCl [Zantac] 150 mg PO AC-SUPPER 03/28/19 03/28/19 Previous Rx's Medication Instructions Recorded Omeprazole 40 mg PO DAILY #30 capsule. 09/13/16 Tamsulosin [Flomax] 0.4 mg PO PC-BRKFST #10 cap.er.24h 03/30/19 Allergies Allergy/AdvReac Type Severity Reaction Status Date / Time hydromorphone [From Dilaudid] AdvReac Nausea Verified 07/18/19 11:32 morphine AdvReac Nausea Verified 07/18/19 11:32 Review of Systems ROS Statement: Those systems with pertinent positive or pertinent negative responses have been documented in the HPI. ROS Other: All systems not noted in ROS Statement are negative. Constitutional: Denies: fever Eyes: Denies: eye pain ENT: Denies: ear pain Respiratory: Denies: cough Cardiovascular: Denies: chest pain Endocrine: Denies: fatigue Gastrointestinal: Denies: abdominal pain Genitourinary: Denies: dysuria Musculoskeletal: Denies: back pain Skin: Reports: rash Past Medical History Past Medical History: Diabetes Mellitus, GERD/Reflux Additional Past Medical History / Comment(s): neck and back pain, vertigo, type 2 DM History of Any Multi-Drug Resistant Organisms: None Reported Past Surgical History: Cholecystectomy, Hernia Repair Additional Past Surgical History / Comment(s): BILATERAL CATARACT IMPLANTS Past Anesthesia/Blood Transfusion Reactions: No Reported Reaction Past Psychological History: No Psychological Hx Reported Smoking Status: Never smoker Past Alcohol Use History: None Reported Past Drug Use History: None Reported - Past Family History Father Family Medical History: Diabetes Mellitus Additional Family Medical History / Comment(s): LEUKEMIA Mother Additional Family Medical History / Comment(s): CANCER SPINE General Exam Limitations: no limitations General appearance: alert, in no apparent distress Head exam: Present: atraumatic Eye exam: Present: normal appearance Neck exam: Present: other (Right posterior neck with approximately 7 x 7 cm area of erythema with central opening and purulent discharge. There is mild tenderness.) Respiratory exam: Present: normal lung sounds bilaterally Cardiovascular Exam: Present: regular rate, normal rhythm GI/Abdominal exam: Present: soft. Absent: tenderness Extremities exam: Present: normal inspection Neurological exam: Present: alert Psychiatric exam: Present: normal affect, normal mood Skin exam: Present: erythema Course Vital Signs 07/18/19 11:30 Temperature 97.8 F Pulse Rate 117 H Respiratory 16 Rate Blood Pressure 156/99 O2 Sat by Pulse 99 Oximetry - Reevaluation(s) Reevaluation #1: 07/18/19 14:35 Patient does meet sepsis criteria diagnosed at 1435. Blood culture and lactic acid were ordered. IV antibiotics have been ordered. Medical Decision Making - Medical Decision Making Patient reevaluated. Patient and family updated. Case was discussed in detail with Dr. mustafa, who will admit covering for hospital call. She will evaluate patient prior to additional antibiotics or consult. - Lab Data Result diagrams: 07/18/19 12:28 07/18/19 12:28 Lab Results 11/17/19 11/17/19 11/17/19 Range/Units 12:28 12:28 12:28 WBC 10.9 H (3.8-10.6) k/uL RBC 4.51 (4.30-5.90) m/uL Hgb 11.1 L (13.0-17.5) gm/dL Hct 34.8 L (39.0-53.0) % MCV 77.3 L (80.0-100.0) fL MCH 24.6 L (25.0-35.0) pg MCHC 31.8 (31.0-37.0) g/dL RDW 14.8 (11.5-15.5) % Plt Count 349 (150-450) k/uL Neutrophils % 55 % Lymphocytes % 34 % Monocytes % 4 % Eosinophils % 3 % Basophils % 0 % Neutrophils # 6.0 (1.3-7.7) k/uL Lymphocytes # 3.7 (1.0-4.8) k/uL Monocytes # 0.5 (0-1.0) k/uL Eosinophils # 0.3 (0-0.7) k/uL Basophils # 0.0 (0-0.2) k/uL Hypochromasia Marked Microcytosis Slight PT (9.0-12.0) sec INR (<1.2) APTT (22.0-30.0) sec Sodium 140 (137-145) mmol/L Potassium 4.9 (3.5-5.1) mmol/L Chloride 107 (98-107) mmol/L Carbon Dioxide 22 (22-30) mmol/L Anion Gap 11 mmol/L BUN 21 H (9-20) mg/dL Creatinine 1.51 H (0.66-1.25) mg/dL Est GFR (CKD-EPI)AfAm 59 (>60 ml/min/1.73 sqM) Est GFR (CKD-EPI)NonAf 51 (>60 ml/min/1.73 sqM) Glucose 120 H (74-99) mg/dL Plasma Lactic Acid Vipul 2.3 H* (0.7-2.0) mmol/L Calcium 9.6 (8.4-10.2) mg/dL Total Bilirubin 0.9 (0.2-1.3) mg/dL AST 17 (17-59) U/L ALT 18 L (21-72) U/L Alkaline Phosphatase 78 (38-126) U/L Total Protein 7.2 (6.3-8.2) g/dL Albumin 4.2 (3.5-5.0) g/dL 07/18/19 Range/Units 12:28 WBC (3.8-10.6) k/uL RBC (4.30-5.90) m/uL Hgb (13.0-17.5) gm/dL Hct (39.0-53.0) % MCV (80.0-100.0) fL MCH (25.0-35.0) pg MCHC (31.0-37.0) g/dL RDW (11.5-15.5) % Plt Count (150-450) k/uL Neutrophils % % Lymphocytes % % Monocytes % % Eosinophils % % Basophils % % Neutrophils # (1.3-7.7) k/uL Lymphocytes # (1.0-4.8) k/uL Monocytes # (0-1.0) k/uL Eosinophils # (0-0.7) k/uL Basophils # (0-0.2) k/uL Hypochromasia Microcytosis PT 9.3 (9.0-12.0) sec INR 0.8 (<1.2) APTT 23.6 (22.0-30.0) sec Sodium (137-145) mmol/L Potassium (3.5-5.1) mmol/L Chloride (98-107) mmol/L Carbon Dioxide (22-30) mmol/L Anion Gap mmol/L BUN (9-20) mg/dL Creatinine (0.66-1.25) mg/dL Est GFR (CKD-EPI)AfAm (>60 ml/min/1.73 sqM) Est GFR (CKD-EPI)NonAf (>60 ml/min/1.73 sqM) Glucose (74-99) mg/dL Plasma Lactic Acid Vipul (0.7-2.0) mmol/L Calcium (8.4-10.2) mg/dL Total Bilirubin (0.2-1.3) mg/dL AST (17-59) U/L ALT (21-72) U/L Alkaline Phosphatase (38-126) U/L Total Protein (6.3-8.2) g/dL Albumin (3.5-5.0) g/dL Critical Care Time Critical Care Time: Yes Total Critical Care Time: 31 Disposition Clinical Impression: Cellulitis, neck, Sepsis Disposition: ADMITTED IP TO THIS HOSP Is patient prescribed a controlled substance at d/c from ED?: No Referrals: Gris Lerner MD [Primary Care Provider] - 1-2 days Decision Time: 14:35
[2019-07-18] MEDS: SODIUM CHLORIDE 0.9% 1,000 ML IV SCH ×2 (12:38→20:12)
[2019-07-18 12:52] LABS: Albumin 4.2 g/dL (3.5-5.0); Calcium 9.6 mg/dL (8.4-10.2); Potassium 4.9 mmol/L (3.5-5.1); Total Bilirubin 0.9 mg/dL (0.2-1.3); Total Protein 7.2 g/dL (6.3-8.2)
[2019-07-18 12:55] LABS: INR 0.8 (<1.2); Partial Thromboplastin Time 23.6 sec (22.0-30.0); Prothrombin Time 9.3 sec (9.0-12.0)
[2019-07-18 13:01] LABS: Basophils % (A) 0 %; Eosinophils # (A) 0.3 k/uL (0-0.7); Eosinophils % (A) 3 %; HCT 34.8 % (39.0-53.0); HGB 11.1 gm/dL (13.0-17.5); Hypochromasia Marked; Lymphocytes # (A) 3.7 k/uL (1.0-4.8); Lymphocytes % (A) 34 %; MCH 24.6 pg (25.0-35.0); MCHC 31.8 g/dL (31.0-37.0); MCV 77.3 fL (80.0-100.0); Mean Platelet Volume 6.3; Microcytosis Slight; Monocytes # (A) 0.5 k/uL (0-1.0); Monocytes % (A) 4 %; Neutrophils % (A) 55 %; Platelet Count 349 k/uL (150-450); RBC 4.51 m/uL (4.30-5.90); RDW 14.8 % (11.5-15.5); WBC 10.9 k/uL (3.8-10.6)
[2019-07-18] MEDS ORDERED: NALOXONE 0.4 MG/ML 1 ML VIAL IV PRN (14:36)
[2019-07-18] MEDS ORDERED: ACETAMINOPHEN TAB 325 MG TAB PO PRN (14:36)
[2019-07-18] MEDS ORDERED: SODIUM CHLORIDE 0.9% 500 ML 500 ML IV ONE (15:53)
[2019-07-18] MEDS: IBUPROFEN 400 MG TAB PO PRN (16:04)
[2019-07-18 16:47] LABS: Glucose,Whole Blood 86 mg/dL (75-99)
--- NOTE | 2019-07-18 18:18 | P.HPIM ---
History of Present Illness H&P Date: 07/18/19 Chief Complaint: Sore on the right side of the neck Mr. Mcgill is a 58-year-old male with a past medical history of type 2 diabetes mellitus, GERD, hypertension coming in with the concerns of sore on the right side of his neck. Patient states that he noticed a small follicle on the right side of his neck and he has been scratching and eventually it became big. So the patient went to his primary care physician's office, fair they lanced the lesion but could not drain anything. The patient was started on Bactrim and discharged home. Patient continued to take Bactrim for the past 3 days but did not notice any improvement in the lesion. His noticed that the redness was increasing and the swelling became bigger and the patient started to experience some discomfort and pain. Patient denies having any history of fevers or chills. Patient states that his diabetes is under good control and his last hemoglobin A1c was less than 8. Patient denies having any chest pain orPalpitations. No cough or difficulty in breathing. No abdominal pain nausea vomiting or diarrhea. No hematuria or dysuria. No headaches, blurring of vision, slurring of speech. No loss of consciousness or syncopal episodes. Patient has history of chronic osteoarthritis. In the ER patient was given IV fluids and started on Unasyn and admitted to the floors for further management. Review of Systems REVIEW OF SYSTEMS: PSYCH: Normal psychiatric exam NEURO:No c/o weakness of the extremties, No facial droop, No speech abnormalities. VASCULAR: Peripheral nervous system within the normal limits no edema HEMATOLOGIC: No history of easy bleeding and bruising . No recent infections . RESPIRATORY: No cough, No SOB, No chest discomfort. OPHTHALMOLOGIC: No blurry vision and no eye discharge : No dysuria or hematuria CARDIAC: No chest pain , shortness of breath , paroxysmal nocturnal dyspnea MUSCULOSKELETAL : No Aches or pains in the joints or muscles. GI: No abdominal pain, Nausea or vomiting. No constipation or diarrhea. Past Medical History Past Medical History: Diabetes Mellitus, GERD/Reflux Additional Past Medical History / Comment(s): neck and back pain, vertigo, type 2 DM History of Any Multi-Drug Resistant Organisms: None Reported Past Surgical History: Cholecystectomy, Hernia Repair Additional Past Surgical History / Comment(s): BILATERAL CATARACT IMPLANTS Past Anesthesia/Blood Transfusion Reactions: No Reported Reaction Past Psychological History: No Psychological Hx Reported Smoking Status: Never smoker Past Alcohol Use History: None Reported Past Drug Use History: None Reported - Past Family History Father Family Medical History: Diabetes Mellitus Additional Family Medical History / Comment(s): LEUKEMIA Mother Additional Family Medical History / Comment(s): CANCER SPINE Medications and Allergies Home Medications Medication Instructions Recorded Confirmed Type Aspirin 81 mg PO DAILY 08/11/16 07/18/19 History metFORMIN HCL [metFORMIN HCL ER] 1,000 mg PO BID 08/11/16 07/18/19 History Atorvastatin [Lipitor] 40 mg PO HS 03/28/19 07/18/19 History Insulin NPH Human Isophane 17 units SQ DAILY 03/28/19 07/18/19 History [NovoLIN N] Omeprazole 20 mg PO DAILY 07/18/19 07/18/19 History Sulfamethox-Tmp 800-160Mg [Bactrim 1 tab PO Q12HR 07/18/19 07/18/19 History DS 800-160 mg] amLODIPine [Norvasc] 5 mg PO DAILY 07/18/19 07/18/19 History Allergies Allergy/AdvReac Type Severity Reaction Status Date / Time hydromorphone [From Dilaudid] AdvReac Nausea Verified 07/18/19 15:17 morphine AdvReac Nausea Verified 07/18/19 15:17 Physical Exam Vitals: Vital Signs Temp Pulse Pulse Resp BP BP BP 07/18/19 15:59 164/93 158/93 07/18/19 15:45 12 07/18/19 15:37 97.9 F 96 12 169/90 07/18/19 15:12 98 16 140/71 07/18/19 11:30 97.8 F 117 H 16 156/99 Pulse Ox 07/18/19 15:59 07/18/19 15:45 07/18/19 15:37 100 07/18/19 15:12 99 07/18/19 11:30 99 Intake and Output 07/18/19 07/18/19 07/18/19 06:59 14:59 22:59 Other: Voiding Method Toilet Weight 106.594 kg General appearance: alert, in no apparent distress Head exam: Normocephalic. Eye exam: No pallor. No icterus Neck exam: Right posterior neck with approximately 7 x 7 cm area of erythema with central opening and purulent discharge. There is mild tenderness. Genital surrounding induration. Respiratory exam: Bilateral breath sounds posterior. No wheezes or crackles. Cardiovascular Exam: S1-S2 heard. GI/Abdominal exam: Abdomen soft. Nontender. Bowel sounds positive. Extremities exam: No pedal edema. Neurological exam: Alert and oriented 3. No focal neurological deficits. Results CBC & Chem 7: 07/18/19 12:28 07/18/19 12:28 Labs: Abnormal Lab Results - Last 24 Hours (Table) 07/18/19 07/18/19 07/18/19 Range/Units 12:28 12:28 12:28 WBC 10.9 H (3.8-10.6) k/uL Hgb 11.1 L (13.0-17.5) gm/dL Hct 34.8 L (39.0-53.0) % MCV 77.3 L (80.0-100.0) fL MCH 24.6 L (25.0-35.0) pg BUN 21 H (9-20) mg/dL Creatinine 1.51 H (0.66-1.25) mg/dL Glucose 120 H (74-99) mg/dL Plasma Lactic Acid Vipul 2.3 H* (0.7-2.0) mmol/L ALT 18 L (21-72) U/L Microbiology - Last 24 Hours (Table) 07/18/19 12:37 Wound Culture - Preliminary Neck Thrombosis Risk Factor Assmnt - Choose All That Apply Each Factor Represents 1 point: Age 41-60 years, Obesity (BMI >25) Thrombosis Risk Factor Assessment Total Risk Factor Score: 2 Thrombosis Risk Factor Assessment Level: Low Risk Assessment and Plan Assessment: ASSESSMENT Cellulitis/abscess of the neck Lactic acidosis Acute kidney injury Type 2 diabetes mellitus insulin-dependent Osteoarthritis GERD Obesity with BMI of 31.9 PLAN: Patient has been admitted for IV antibiotics due to failed outpatient antibiotics for the neck cellulitis. We will consult surgery for possible I and D. Patient has been started on Unasyn will continue with that for now. Patient's lactic acid has trended down after giving him and 500 mL of IV bolus of normal saline. The treatment plan was discussed with the patient and his at the bedside in detail. Further recommendations to follow depending on the progress of the patient.
[2019-07-18] MEDS: AMPICILLIN-SULBACTAM 3 GM in SODIUM CHLORIDE 0.9% 100 ML IVPB SCH (20:09)
[2019-07-18] MEDS: ATORVASTATIN 40 MG TAB PO SCH (20:12)
[2019-07-18] MEDS: INSULIN ASPART (NovoLOG) 100 UNIT/ML VIAL SQ SCH (20:21)
[2019-07-18 20:27] LABS: Glucose,Whole Blood 154 mg/dL (75-99)
[2019-07-19] MEDS: SODIUM CHLORIDE 0.9% 1,000 ML IV SCH ×3 (00:17→14:46)
[2019-07-19] MEDS: AMPICILLIN-SULBACTAM 3 GM in SODIUM CHLORIDE 0.9% 100 ML IVPB SCH (03:33)
[2019-07-19 06:32] LABS: Basophils # (A) 0.1 k/uL (0-0.2); Basophils % (A) 1 %; Eosinophils # (A) 0.4 k/uL (0-0.7); Eosinophils % (A) 3 %; HCT 29.5 % (39.0-53.0); Hypochromasia Moderate; Lymphocytes # (A) 4.9 k/uL (1.0-4.8); Lymphocytes % (A) 44 %; MCHC 30.9 g/dL (31.0-37.0); MCV 77.8 fL (80.0-100.0); Mean Platelet Volume 6.9; Microcytosis Slight; Monocytes # (A) 0.5 k/uL (0-1.0); Monocytes % (A) 4 %; Neutrophils # (A) 4.9 k/uL (1.3-7.7); Neutrophils % (A) 43 %; Platelet Count 339 k/uL (150-450); RDW 15.3 % (11.5-15.5); WBC 11.3 k/uL (3.8-10.6)
[2019-07-19 06:34] LABS: HGB 9.1 gm/dL (13.0-17.5)
[2019-07-19 06:50] LABS: Calcium 8.5 mg/dL (8.4-10.2)
[2019-07-19 06:53] LABS: Ovalocytes Present
[2019-07-19 07:34] LABS: Glucose,Whole Blood 143 mg/dL (75-99)
[2019-07-19] MEDS: INSULIN NPH 300 UNIT/3 ML VIAL SQ SCH (07:35)
[2019-07-19] MEDS: INSULIN ASPART (NovoLOG) 100 UNIT/ML VIAL SQ SCH ×4 (07:40→20:46)
[2019-07-19] MEDS: PANTOPRAZOLE 40 MG TABLET PO SCH (08:56)
[2019-07-19] MEDS: ASPIRIN 81 MG PO SCH (08:56)
[2019-07-19] MEDS: amLODIPine 5 MG TAB PO SCH (08:56)
[2019-07-19] MEDS ORDERED: VANCOMYCIN IV PER PHARMACY 1 EACH MISC MISCELLANE PRN (09:23)
[2019-07-19 09:50] LABS: Hemoglobin A1C 7.5 % (4.0-6.0)
[2019-07-19] MEDS: VANCOMYCIN 1,750 MG in SODIUM CHLORIDE 0.9% 500 ML 500 ML IVPB SCH (10:36)
[2019-07-19] MEDS: IBUPROFEN 400 MG TAB PO PRN (10:47)
[2019-07-19 11:38] LABS: Glucose,Whole Blood 134 mg/dL (75-99)
--- NOTE | 2019-07-19 15:41 | P.PN ---
Subjective Progress Note Date: 07/19/19 Principal diagnosis: Abscess on the right side of the neck Mr. Mcgill is a 58-year-old male with a past medical history of type 2 diabetes mellitus, GERD, hypertension coming in with the concerns of sore on the right side of his neck. Patient states that he noticed a small follicle on the right side of his neck and he has been scratching and eventually it became big. So the patient went to his primary care physician's office, fair they lanced the lesion but could not drain anything. The patient was started on Bactrim and discharged home. Patient continued to take Bactrim for the past 3 days but did not notice any improvement in the lesion. His noticed that the redness was increasing and the swelling became bigger and the patient started to experience some discomfort and pain. Patient denies having any history of fevers or chills. Patient states that his diabetes is under good control and his last hemoglobin A1c was less than 8. On 07/19/2019 - patient's blood cultures from this morning came back as MRSA. So his Unasyn was discontinued and vancomycin was started. Patient is comfortably sitting up in a chair besides the bed. He does not have any active complaints. He still has the discomfort on the right side of his neck where he has the abscess. No fevers chills or rigors reported last night. He denies having any chest pain or palpitations. No cough or difficulty in breathing. No abdominal pain nausea vomiting or diarrhea. No dysuria or hematuria. Active Medications Acetaminophen (Tylenol Tab) 650 mg PO Q6HR PRN PRN Reason: Mild Pain or Fever > 100.5 Amlodipine Besylate (Norvasc) 5 mg PO DAILY [facility] Last Admin: 07/19/19 08:56 Dose: 5 mg Documented by: Aspirin (Aspirin) 81 mg PO DAILY [facility] Last Admin: 07/19/19 08:56 Dose: 81 mg Documented by: Atorvastatin Calcium (Lipitor) 40 mg PO HS [facility] Last Admin: 07/18/19 20:12 Dose: 40 mg Documented by: Sodium Chloride (Saline 0.9%) 1,000 mls @ 130 mls/hr IV .Q7H42M [facility] Last Admin: 07/19/19 14:46 Dose: 130 mls/hr Documented by: Vancomycin HCl 1,750 mg/ (Sodium Chloride) 500 mls @ 167 mls/hr IVPB Q24H [facility] Last Admin: 07/19/19 10:36 Dose: 167 mls/hr Documented by: Vancomycin HCl 1,750 mg/ (Sodium Chloride) 500 mls @ 167 mls/hr IVPB Q12H [facility] Ibuprofen (Motrin) 400 mg PO Q6HR PRN PRN Reason: Mild Pain or Fever > 100.5 Last Admin: 07/19/19 10:47 Dose: 400 mg Documented by: Insulin Aspart (Novolog) 0 unit SQ ACHS [facility]; Protocol Last Admin: 07/19/19 13:01 Dose: 1 unit Documented by: Insulin Human NPH (Humulin N) 17 unit SQ DAILY [facility] Last Admin: 07/19/19 07:35 Dose: 17 unit Documented by: Naloxone HCl (Narcan) 0.2 mg IV Q2M PRN PRN Reason: Opioid Reversal Pantoprazole Sodium (Protonix) 40 mg PO AC-BRKFST [facility] Last Admin: 07/19/19 08:56 Dose: 40 mg Documented by: Objective - Vital Signs Vital signs: Vital Signs Temp 98.2 F 07/19/19 15:00 Pulse 89 07/19/19 15:00 Resp 17 07/19/19 15:00 BP 154/85 07/19/19 15:00 Pulse Ox 97 07/19/19 15:00 Intake & Output 07/18/19 07/19/19 07/19/19 18:59 06:59 18:59 Intake Total 1560 296 Balance 1560 296 Weight 106.594 kg Intake: Intake, IV Titration 1560 Amount Sodium Chloride 0.9% 1, 1560 000 ml @ 130 mls/hr IV . Q7H42M [facility] Rx#:[id number] Oral 296 Other: Voiding Method Toilet Toilet - Exam General appearance: alert, in no apparent distress Head exam: Normocephalic. Eye exam: No pallor. No icterus Neck exam: Right posterior neck with approximately 7 x 7 cm area of erythema with central opening and purulent discharge. There is mild tenderness. There is some surrounding induration. No changes since yesterday. Respiratory exam: Bilateral breath sounds posterior. No wheezes or crackles. Cardiovascular Exam: S1-S2 heard. GI/Abdominal exam: Abdomen soft. Nontender. Bowel sounds positive. Extremities exam: No pedal edema. Neurological exam: Alert and oriented 3. No focal neurological deficits. - Labs CBC & Chem 7: 07/19/19 05:47 07/19/19 05:47 Labs: Abnormal Lab Results - Last 24 Hours (Table) 07/18/19 07/18/19 07/19/19 Range/Units 16:04 20:07 05:47 WBC 11.3 H (3.8-10.6) k/uL RBC 3.80 L (4.30-5.90) m/uL Hgb 9.1 L D (13.0-17.5) gm/dL Hct 29.5 L (39.0-53.0) % MCV 77.8 L (80.0-100.0) fL MCH 24.0 L (25.0-35.0) pg MCHC 30.9 L (31.0-37.0) g/dL Lymphocytes # 4.9 H (1.0-4.8) k/uL Creatinine (0.66-1.25) mg/dL Glucose (74-99) mg/dL POC Glucose (mg/dL) 154 H (75-99) mg/dL Hemoglobin A1c 7.5 H (4.0-6.0) % 07/19/19 07/19/19 07/19/19 Range/Units 05:47 07:32 11:36 WBC (3.8-10.6) k/uL RBC (4.30-5.90) m/uL Hgb (13.0-17.5) gm/dL Hct (39.0-53.0) % MCV (80.0-100.0) fL MCH (25.0-35.0) pg MCHC (31.0-37.0) g/dL Lymphocytes # (1.0-4.8) k/uL Creatinine 1.26 H (0.66-1.25) mg/dL Glucose 122 H (74-99) mg/dL POC Glucose (mg/dL) 143 H 134 H (75-99) mg/dL Hemoglobin A1c (4.0-6.0) % Microbiology - Last 24 Hours (Table) 07/18/19 12:28 Blood Culture - Preliminary Blood No Growth after 24 hours 07/18/19 12:37 Gram Stain - Preliminary Neck Wound Culture - Preliminary Presumptive MRSA Assessment and Plan Assessment: ASSESSMENT Cellulitis/abscess of the neck Lactic acidosis Acute kidney injury Type 2 diabetes mellitus insulin-dependent Osteoarthritis GERD Obesity with BMI of 31.9 PLAN: Patient's blood cultures from this morning to MRSA. His Unasyn as been discontinued and Vancomycin was initiated. Will repeat blood cultures for tomorrow morning. ID Dr. Woodard has been consulted. Further recommendations to follow depending on the progress of the patient. The treatment plan was discussed with the patient and his at the bedside in detail.
--- NOTE | 2019-07-19 15:52 | P.GSCN ---
History of Present Illness Consult date: 07/19/19 Reason for Consult: neck abscess Requesting physician: Natalya Lee History of present illness: CHIEF COMPLAINT: Neck abscess HISTORY OF PRESENT ILLNESS: 58-year-old male who presented to the emergency room with a chief complaint of a neck abscess. Patient states he has had an abscess on his neck for approximately 7-10 days. He reports going to his primary care physician last week who lanced it in the office. He reports there was very minimal drainage at that time. He was placed on antibiotics also. Patient reports the area became more tender, swollen, and increased in redness so he decided to come to the emergency room for further evaluation. Patient denies having fever or chills at home. He reports the wound started spontaneously draining purulent drainage yesterday. PAST MEDICAL HISTORY: See list. PAST SURGICAL HISTORY: See list. SOCIAL HISTORY: No illicit drug use. REVIEW OF SYSTEMS: CONSTITUTIONAL: Denies fever or chills. HEENT: Denies blurred vision, vision changes, or eye pain. Denies hemoptysis CARDIOVASCULAR: Denies chest pain or pressure. RESPIRATORY: No shortness of breath. GASTROINTESTINAL: Refer to [facility] for pertinent findings HEMATOLOGIC: Denies bleeding disorders. GENITOURINARY: Denies any blood in urine. SKIN: Reports abscess to right side of neck. PHYSICAL EXAM: VITAL SIGNS: Reviewed. GENERAL: Well-developed in no acute distress. HEENT: No sclera icterus. Extraocular movements grossly intact. Moist buccal mucosa. Head is atraumatic, normocephalic. ABDOMEN: Soft. Nondistended. Nontender. NEUROLOGIC: Alert and oriented. Cranial nerves II through XII grossly intact. SKIN: Approximately 6cm x 6cm area of induration to right posterior neck with open wound at center draining purulent drainage with surrounding erythema. No palpable fluid collection. Mild tenderness with palpation. LABORATORY DATA: Most recent laboratory data reveals white count 11.3. Hemoglobin 9.1. Platelet count 339. BUN 17. Creatinine 1.26. ASSESSMENT: 1. Right neck abscess, cultures positive for presumptive MRSA PLAN: 1. Dr. Woodard consulted for antibiotic recommendations 2. Await final culture results 3. Continue local wound care with daily and PRN dressing changes with dry gauze 4. No surgical intervention recommended at this time as wound is spontaneously draining Nurse practitioner note has been reviewed by physician. Signing provider agrees with the documented findings, assessment, and plan of care. Past Medical History Past Medical History: Diabetes Mellitus, GERD/Reflux Additional Past Medical History / Comment(s): neck and back pain, vertigo, type 2 DM History of Any Multi-Drug Resistant Organisms: None Reported Past Surgical History: Cholecystectomy, Hernia Repair Additional Past Surgical History / Comment(s): BILATERAL CATARACT IMPLANTS Past Anesthesia/Blood Transfusion Reactions: No Reported Reaction Past Psychological History: No Psychological Hx Reported Smoking Status: Never smoker Past Alcohol Use History: None Reported Past Drug Use History: None Reported - Past Family History Father Family Medical History: Diabetes Mellitus Additional Family Medical History / Comment(s): LEUKEMIA Mother Additional Family Medical History / Comment(s): CANCER SPINE Medications and Allergies Home Medications Medication Instructions Recorded Confirmed Type Aspirin 81 mg PO DAILY 08/11/16 07/18/19 History metFORMIN HCL [metFORMIN HCL ER] 1,000 mg PO BID 08/11/16 07/18/19 History Atorvastatin [Lipitor] 40 mg PO HS 03/28/19 07/18/19 History Insulin NPH Human Isophane 17 units SQ DAILY 03/28/19 07/18/19 History [NovoLIN N] Omeprazole 20 mg PO DAILY 07/18/19 07/18/19 History Sulfamethox-Tmp 800-160Mg [Bactrim 1 tab PO Q12HR 07/18/19 07/18/19 History DS 800-160 mg] amLODIPine [Norvasc] 5 mg PO DAILY 07/18/19 07/18/19 History Allergies Allergy/AdvReac Type Severity Reaction Status Date / Time hydromorphone [From Dilaudid] AdvReac Nausea Verified 07/18/19 15:17 morphine AdvReac Nausea Verified 07/18/19 15:17 Surgical - Exam Vital Signs Temp Pulse Resp BP Pulse Ox 97.8 F 117 H 16 156/99 99 07/18/19 11:30 07/18/19 11:30 07/18/19 11:30 07/18/19 11:30 07/18/19 11:30 Results - Labs 07/19/19 05:47 07/19/19 05:47 Abnormal Lab Results - Last 24 Hours (Table) 07/18/19 07/18/19 07/18/19 Range/Units 12:28 12:28 12:28 WBC 10.9 H (3.8-10.6) k/uL RBC (4.30-5.90) m/uL Hgb 11.1 L (13.0-17.5) gm/dL Hct 34.8 L (39.0-53.0) % MCV 77.3 L (80.0-100.0) fL MCH 24.6 L (25.0-35.0) pg MCHC (31.0-37.0) g/dL Lymphocytes # (1.0-4.8) k/uL BUN 21 H (9-20) mg/dL Creatinine 1.51 H (0.66-1.25) mg/dL Glucose 120 H (74-99) mg/dL POC Glucose (mg/dL) (75-99) mg/dL Hemoglobin A1c (4.0-6.0) % Plasma Lactic Acid Vipul 2.3 H* (0.7-2.0) mmol/L ALT 18 L (21-72) U/L 07/18/19 07/18/19 07/19/19 Range/Units 16:04 20:07 05:47 WBC 11.3 H (3.8-10.6) k/uL RBC 3.80 L (4.30-5.90) m/uL Hgb 9.1 L D (13.0-17.5) gm/dL Hct 29.5 L (39.0-53.0) % MCV 77.8 L (80.0-100.0) fL MCH 24.0 L (25.0-35.0) pg MCHC 30.9 L (31.0-37.0) g/dL Lymphocytes # 4.9 H (1.0-4.8) k/uL BUN (9-20) mg/dL Creatinine (0.66-1.25) mg/dL Glucose (74-99) mg/dL POC Glucose (mg/dL) 154 H (75-99) mg/dL Hemoglobin A1c 7.5 H (4.0-6.0) % Plasma Lactic Acid Vipul (0.7-2.0) mmol/L ALT (21-72) U/L 07/19/19 07/19/19 07/19/19 Range/Units 05:47 07:32 11:36 WBC (3.8-10.6) k/uL RBC (4.30-5.90) m/uL Hgb (13.0-17.5) gm/dL Hct (39.0-53.0) % MCV (80.0-100.0) fL MCH (25.0-35.0) pg MCHC (31.0-37.0) g/dL Lymphocytes # (1.0-4.8) k/uL BUN (9-20) mg/dL Creatinine 1.26 H (0.66-1.25) mg/dL Glucose 122 H (74-99) mg/dL POC Glucose (mg/dL) 143 H 134 H (75-99) mg/dL Hemoglobin A1c (4.0-6.0) % Plasma Lactic Acid Vipul (0.7-2.0) mmol/L ALT (21-72) U/L Microbiology - Last 24 Hours (Table) 07/18/19 12:37 Gram Stain - Preliminary Neck Wound Culture - Preliminary Presumptive MRSA Diabetes panel 07/18/19 07/18/19 07/19/19 Range/Units 12:28 16:04 05:47 Sodium 140 137 (137-145) mmol/L Potassium 4.9 5.0 (3.5-5.1) mmol/L Chloride 107 106 (98-107) mmol/L Carbon Dioxide 22 24 (22-30) mmol/L BUN 21 H 17 (9-20) mg/dL Creatinine 1.51 H 1.26 H (0.66-1.25) mg/dL Glucose 120 H 122 H (74-99) mg/dL Hemoglobin A1c 7.5 H (4.0-6.0) % Calcium 9.6 8.5 (8.4-10.2) mg/dL AST 17 (17-59) U/L ALT 18 L (21-72) U/L Alkaline Phosphatase 78 (38-126) U/L Total Protein 7.2 (6.3-8.2) g/dL Albumin 4.2 (3.5-5.0) g/dL Calcium panel 07/18/19 07/19/19 Range/Units 12:28 05:47 Calcium 9.6 8.5 (8.4-10.2) mg/dL Albumin 4.2 (3.5-5.0) g/dL Pituitary panel 07/18/19 07/19/19 Range/Units 12:28 05:47 Sodium 140 137 (137-145) mmol/L Potassium 4.9 5.0 (3.5-5.1) mmol/L Chloride 107 106 (98-107) mmol/L Carbon Dioxide 22 24 (22-30) mmol/L BUN 21 H 17 (9-20) mg/dL Creatinine 1.51 H 1.26 H (0.66-1.25) mg/dL Glucose 120 H 122 H (74-99) mg/dL Calcium 9.6 8.5 (8.4-10.2) mg/dL Adrenal panel 07/18/19 07/19/19 Range/Units 12:28 05:47 Sodium 140 137 (137-145) mmol/L Potassium 4.9 5.0 (3.5-5.1) mmol/L Chloride 107 106 (98-107) mmol/L Carbon Dioxide 22 24 (22-30) mmol/L BUN 21 H 17 (9-20) mg/dL Creatinine 1.51 H 1.26 H (0.66-1.25) mg/dL Glucose 120 H 122 H (74-99) mg/dL Calcium 9.6 8.5 (8.4-10.2) mg/dL Total Bilirubin 0.9 (0.2-1.3) mg/dL AST 17 (17-59) U/L ALT 18 L (21-72) U/L Alkaline Phosphatase 78 (38-126) U/L Total Protein 7.2 (6.3-8.2) g/dL Albumin 4.2 (3.5-5.0) g/dL
[2019-07-19 16:50] LABS: Glucose,Whole Blood 154 mg/dL (75-99)
[2019-07-19 20:34] LABS: Glucose,Whole Blood 208 mg/dL (75-99)
[2019-07-19] MEDS: ATORVASTATIN 40 MG TAB PO SCH (20:46)
--- NOTE | 2019-07-19 23:25 | P.CONS ---
History of Present Illness - Reason for Consult Consult date: 07/19/19 neck abscess MRSA Requesting physician: Natalya Lee - Chief Complaint neck pain and draiange x few days - History of Present Illness Patient is a 58-year male past medical history negative for diabetes patient had a develop ingrowing hair/pimple on the right side of the neck about a week ago for the patient was evaluated by primary care physician and did have a relapse in the office and the patient was started on oral Bactrim DS patient over the next few days noticed to have more swelling redness and he started having some bloodstained drainage that concerned the patient and she presented to [facility] ER last night patient did have local wound cultures obtained as well as blood cultures and the patient was started on vancomycin with a local cultures, gram-positive with MRSA that prompted this infectious disease consultation since the patient has presented to the hospital he has been afebrile on arrival to the ER patient did have a white count of 11.3 patient describing the pain to the right side posterior neck area. More of a dull aching and throbbing was almost 8 out of 10 he presented to hospital with his current doctor about 4 of 10 he did have mild purulent drainage. The patient currently denies Chest pain shortness of breath, no nausea vomiting abdominal pain or diarrhea and currently noted no other source Review of Systems Positive point has been mentioned in HPI rest of the systems are negative Past Medical History Past Medical History: Diabetes Mellitus, GERD/Reflux Additional Past Medical History / Comment(s): neck and back pain, vertigo, type 2 DM History of Any Multi-Drug Resistant Organisms: None Reported Past Surgical History: Cholecystectomy, Hernia Repair Additional Past Surgical History / Comment(s): BILATERAL CATARACT IMPLANTS Past Anesthesia/Blood Transfusion Reactions: No Reported Reaction Past Psychological History: No Psychological Hx Reported Smoking Status: Never smoker Past Alcohol Use History: None Reported Past Drug Use History: None Reported - Past Family History Father Family Medical History: Diabetes Mellitus Additional Family Medical History / Comment(s): LEUKEMIA Mother Additional Family Medical History / Comment(s): CANCER SPINE Medications and Allergies Home Medications Medication Instructions Recorded Confirmed Type Aspirin 81 mg PO DAILY 08/11/16 07/18/19 History metFORMIN HCL [metFORMIN HCL ER] 1,000 mg PO BID 08/11/16 07/18/19 History Atorvastatin [Lipitor] 40 mg PO HS 03/28/19 07/18/19 History Insulin NPH Human Isophane 17 units SQ DAILY 03/28/19 07/18/19 History [NovoLIN N] Omeprazole 20 mg PO DAILY 07/18/19 07/18/19 History Sulfamethox-Tmp 800-160Mg [Bactrim 1 tab PO Q12HR 07/18/19 07/18/19 History DS 800-160 mg] amLODIPine [Norvasc] 5 mg PO DAILY 07/18/19 07/18/19 History Allergies Allergy/AdvReac Type Severity Reaction Status Date / Time hydromorphone [From Dilaudid] AdvReac Nausea Verified 07/18/19 15:17 morphine AdvReac Nausea Verified 07/18/19 15:17 Physical Exam Vitals: Vital Signs Temp Pulse Pulse Resp BP BP BP 07/19/19 07:00 97.5 F L 81 16 154/94 07/19/19 03:26 16 07/19/19 00:07 97.9 F 94 15 144/79 07/19/19 00:00 16 07/18/19 19:59 98.0 F 100 16 163/87 07/18/19 15:59 164/93 158/93 07/18/19 15:45 12 07/18/19 15:37 97.9 F 96 12 169/90 07/18/19 15:12 98 16 140/71 07/18/19 11:30 97.8 F 117 H 16 156/99 Pulse Ox 07/19/19 07:00 99 07/19/19 03:26 07/19/19 00:07 98 07/19/19 00:00 07/18/19 19:59 97 07/18/19 15:59 07/18/19 15:45 07/18/19 15:37 100 07/18/19 15:12 99 07/18/19 11:30 99 Intake and Output 07/18/19 07/19/19 07/19/19 22:59 06:59 14:59 Intake Total 780 780 296 Balance 780 780 296 Intake: Intake, IV Titration 780 780 Amount Sodium Chloride 0.9% 1, 780 780 000 ml @ 130 mls/hr IV . Q7H42M [facility] Rx#:[id number] Oral 296 Other: Voiding Method Toilet Toilet GENERAL DESCRIPTION: Middle-aged male lying in bed, no distress. No tachypnea or accessory muscle of respiration use. HEENT: Shows Pallor , no scleral icterus. Oral mucous membrane is dry. NECK: Trachea central, no thyromegaly. Posterior neck did have an area of induration some slough tissue tender and warm to touch lUNGS: Unlabored breathing. Clear to auscultation anteriorly. No wheeze or crackle. HEART: S1, S2, regular rate and rhythm. ABDOMEN: Soft, no tenderness , guarding or rigidity EXTREMITIES: No edema of feet. SKIN: No rash, no masses palpable. NEUROLOGICAL: The patient is awake, alert, oriented x3, mood and affect normal. Results CBC & Chem 7: 07/19/19 05:47 07/19/19 05:47 Labs: Abnormal Lab Results - Last 24 Hours (Table) 07/18/19 07/18/19 07/18/19 Range/Units 12:28 12:28 12:28 WBC 10.9 H (3.8-10.6) k/uL RBC (4.30-5.90) m/uL Hgb 11.1 L (13.0-17.5) gm/dL Hct 34.8 L (39.0-53.0) % MCV 77.3 L (80.0-100.0) fL MCH 24.6 L (25.0-35.0) pg MCHC (31.0-37.0) g/dL Lymphocytes # (1.0-4.8) k/uL BUN 21 H (9-20) mg/dL Creatinine 1.51 H (0.66-1.25) mg/dL Glucose 120 H (74-99) mg/dL POC Glucose (mg/dL) (75-99) mg/dL Hemoglobin A1c (4.0-6.0) % Plasma Lactic Acid Vipul 2.3 H* (0.7-2.0) mmol/L ALT 18 L (21-72) U/L 07/18/19 07/18/19 07/19/19 Range/Units 16:04 20:07 05:47 WBC 11.3 H (3.8-10.6) k/uL RBC 3.80 L (4.30-5.90) m/uL Hgb 9.1 L D (13.0-17.5) gm/dL Hct 29.5 L (39.0-53.0) % MCV 77.8 L (80.0-100.0) fL MCH 24.0 L (25.0-35.0) pg MCHC 30.9 L (31.0-37.0) g/dL Lymphocytes # 4.9 H (1.0-4.8) k/uL BUN (9-20) mg/dL Creatinine (0.66-1.25) mg/dL Glucose (74-99) mg/dL POC Glucose (mg/dL) 154 H (75-99) mg/dL Hemoglobin A1c 7.5 H (4.0-6.0) % Plasma Lactic Acid Vipul (0.7-2.0) mmol/L ALT (21-72) U/L 07/19/19 07/19/19 Range/Units 05:47 07:32 WBC (3.8-10.6) k/uL RBC (4.30-5.90) m/uL Hgb (13.0-17.5) gm/dL Hct (39.0-53.0) % MCV (80.0-100.0) fL MCH (25.0-35.0) pg MCHC (31.0-37.0) g/dL Lymphocytes # (1.0-4.8) k/uL BUN (9-20) mg/dL Creatinine 1.26 H (0.66-1.25) mg/dL Glucose 122 H (74-99) mg/dL POC Glucose (mg/dL) 143 H (75-99) mg/dL Hemoglobin A1c (4.0-6.0) % Plasma Lactic Acid Vipul (0.7-2.0) mmol/L ALT (21-72) U/L Microbiology - Last 24 Hours (Table) 07/18/19 12:37 Gram Stain - Preliminary Neck Wound Culture - Preliminary Presumptive MRSA Assessment and Plan Assessment: Patient with right posterior neck abscess and cellulitis with a culture positive for MRSA failing outpatient oral Bactrim DS therapy (1) Abscess, neck Current Visit: Yes Status: Acute Code(s): L02.11 - CUTANEOUS ABSCESS OF NECK SNOMED Code(s): 7567309 (2) MRSA (methicillin resistant staph aureus) culture positive Current Visit: Yes Status: Acute Code(s): Z22.322 - CARRIER OR SUSPECTED CARRIER OF METHICILLIN RESIS STAPH SNOMED Code(s): 666567310 Plan: 1-patient may benefit from surgical drainage of the same as area still have significant induration 2-vancomycin pharmacy to dose her with a target trough of 15 while watching her kidney function and Vanco trough closely. 3-Dry protective dressing. We will follow on clinical condition and cultures to further adjust medication if needed Thank you for this consultation we will follow the patient along with you
[2019-07-20] MEDS: SODIUM CHLORIDE 0.9% 1,000 ML IV SCH ×3 (05:53→17:12)
[2019-07-20 06:51] LABS: Glucose,Whole Blood 120 mg/dL (75-99)
[2019-07-20] MEDS: INSULIN ASPART (NovoLOG) 100 UNIT/ML VIAL SQ SCH ×4 (06:57→21:03)
[2019-07-20] MEDS: IBUPROFEN 400 MG TAB PO PRN ×3 (08:32→21:03)
[2019-07-20] MEDS: PANTOPRAZOLE 40 MG TABLET PO SCH (08:32)
[2019-07-20] MEDS: amLODIPine 5 MG TAB PO SCH (08:32)
[2019-07-20] MEDS: ASPIRIN 81 MG PO SCH (08:32)
[2019-07-20] MEDS: INSULIN NPH 300 UNIT/3 ML VIAL SQ SCH (08:35)
[2019-07-20] MEDS: VANCOMYCIN 1,750 MG in SODIUM CHLORIDE 0.9% 500 ML 500 ML IVPB SCH ×2 (09:37→21:03)
--- NOTE | 2019-07-20 11:25 | P.PN ---
Subjective Progress Note Date: 07/20/19 CHIEF COMPLAINT: Neck abscess HISTORY OF PRESENT ILLNESS: Patient examined this morning at the bedside. He reports improvement in his pain of his neck abscess. It continues to drain purulent fluid. Cultures are positive for MRSA. PHYSICAL EXAM: VITAL SIGNS: Reviewed. GENERAL: Well-developed in no acute distress. HEENT: No sclera icterus. Extraocular movements grossly intact. Moist buccal mucosa. Head is atraumatic, normocephalic. ABDOMEN: Soft. Nondistended. Nontender. NEUROLOGIC: Alert and oriented. Cranial nerves II through XII grossly intact. SKIN: Approximately 6cm x 6cm area of induration to right posterior neck with open wound at center draining purulent drainage with surrounding erythema. No palpable fluid collection. Mild tenderness with palpation. ASSESSMENT: 1. Right neck abscess, cultures positive for MRSA PLAN: 1. Dr. Woodard consulted for antibiotic recommendations 2. Continue local wound care with daily and PRN dressing changes with dry gauze 3. No surgical intervention recommended at this time as wound is spontaneously draining 4. Discharge per medicine Nurse practitioner note has been reviewed by physician. Signing provider agrees with the documented findings, assessment, and plan of care. Objective - Vital Signs Vital signs: Vital Signs Temp 98.3 F 07/20/19 07:00 Pulse 80 07/20/19 07:00 Resp 17 07/20/19 07:00 BP 159/97 07/20/19 07:00 Pulse Ox 99 07/20/19 07:00 Intake & Output 07/19/19 07/20/19 07/20/19 18:59 06:59 18:59 Intake Total 296 455 Balance 296 455 Intake: Intake, IV Titration 455 Amount Sodium Chloride 0.9% 1, 455 000 ml @ 130 mls/hr IV . Q7H42M [facility] Rx#:[id number] Oral 296 Other: Voiding Method Toilet Toilet # Voids 1 - Labs CBC & Chem 7: 07/19/19 05:47 07/19/19 05:47 Labs: Abnormal Lab Results - Last 24 Hours (Table) 07/19/19 07/19/19 07/19/19 Range/Units 11:36 16:42 20:32 POC Glucose (mg/dL) 134 H 154 H 208 H (75-99) mg/dL 07/20/19 Range/Units 06:50 POC Glucose (mg/dL) 120 H (75-99) mg/dL Microbiology - Last 24 Hours (Table) 07/18/19 12:37 Gram Stain - Final Neck Wound Culture - Final Methicillin resist S. aureus 07/18/19 12:28 Blood Culture - Preliminary Blood No Growth after 24 hours
[2019-07-20 11:47] LABS: Glucose,Whole Blood 174 mg/dL (75-99)
[2019-07-20 11:54] LABS: Calcium 9.1 mg/dL (8.4-10.2); Potassium 4.5 mmol/L (3.5-5.1)
--- NOTE | 2019-07-20 12:35 | PN ---
PROGRESS NOTE DATE OF SERVICE: 07/20/2019 REASON FOR FOLLOWUP: Posterior neck abscess. INTERVAL HISTORY: The patient is currently afebrile. Patient is breathing comfortably. Overall pain discomfort to the posterior neck area has decreased in intensity. Denies having any chest pain or cough. No abdominal pain. No diarrhea. PHYSICAL EXAMINATION: Blood pressure is 159/97 with a pulse of 80, temperature 98.3. He is 99% on room air. General description is a middle-aged male up in the chair in no distress. EXAMINATION OF THE POSTERIOR NECK AREA: Overall swelling and redness and induration has decreased. LUNGS: Unlabored breathing, clear to auscultation anteriorly. HEART: S1, S2. Regular rate and rhythm. ABDOMEN: Soft, no tenderness. LABS: BUN of 14, creatinine 1.10. DIAGNOSTIC IMPRESSION AND PLAN: Patient with a posterior neck abscess with some spontaneous drainage. May benefit from surgical drainage. Currently on IV vancomycin with the plan to finish therapy with oral Bactrim. Continue supportive care. MMODL / IJN: [id number] /
--- NOTE | 2019-07-20 15:26 | P.PN ---
Subjective 58-year-old male with a past medical history of type 2 diabetes mellitus, GERD, hypertension coming in with the concerns of sore on the right side of his neck. Patient states that he noticed a small follicle on the right side of his neck and he has been scratching and eventually it became big. So the patient went to his primary care physician's office, fair they lanced the lesion but could not drain anything. The patient was started on Bactrim and discharged home. Patient continued to take Bactrim for the past 3 days but did not notice any improvement in the lesion. His noticed that the redness was increasing and the swelling became bigger and the patient started to experience some discomfort and pain. Patient denies having any history of fevers or chills. Patient states that his diabetes is under good control and his last hemoglobin A1c was less than 8. On 07/19/2019 - patient's blood cultures from this morning came back as MRSA. So his Unasyn was discontinued and vancomycin was started. Patient is comfortably sitting up in a chair besides the bed. He does not have any active complaints. He still has the discomfort on the right side of his neck where he has the abscess. No fevers chills or rigors reported last night. He denies having any chest pain or palpitations. No cough or difficulty in breathing. No abdominal pain nausea vomiting or diarrhea. No dysuria or hematuria. 07/20/2019 She has significant pus coming out of the neck abscess area which I'm able to express. Discussed with the surgery still do not believe patient will need incision and drainage patient will be monitored tonight and the general surgery and infectious disease will evaluate reevaluate tomorrow morning. Patient is presently on vancomycin. Constitutional: Denied any fatigue denied any fever. Cardio vascular: denied any chest pain, palpitations Gastrointestinal denied any nausea vomiting Pulmonary: Denied any shortness of breath cough Neurologic denied any new focal deficits All inpatient medications were reviewed and appropriate changes in these medications as dictated in the interval history and assessment and plan. Objective - Vital Signs Vital signs: Vital Signs Temp 98.4 F 07/20/19 14:48 Pulse 91 07/20/19 14:48 Resp 16 07/20/19 14:48 BP 148/87 07/20/19 14:48 Pulse Ox 100 07/20/19 14:48 Intake & Output 07/19/19 07/20/19 07/20/19 18:59 06:59 18:59 Intake Total 296 455 Balance 296 455 Intake: Intake, IV Titration 455 Amount Sodium Chloride 0.9% 1, 455 000 ml @ 130 mls/hr IV . Q7H42M [facility] Rx#:[id number] Oral 296 Other: Voiding Method Toilet Toilet # Voids 1 1 - Exam General appearance: alert, in no apparent distress Head exam: Normocephalic. Eye exam: No pallor. No icterus Neck exam: Right posterior neck with approximately 7 x 7 cm area of erythema with central opening and purulent discharge. There is mild tenderness. There is some surrounding induration. No changes since yesterday. Respiratory exam: Bilateral breath sounds posterior. No wheezes or crackles. Cardiovascular Exam: S1-S2 heard. GI/Abdominal exam: Abdomen soft. Nontender. Bowel sounds positive. Extremities exam: No pedal edema. Neurological exam: Alert and oriented 3. No focal neurological deficits. - Labs CBC & Chem 7: 07/19/19 05:47 07/20/19 06:35 Labs: Abnormal Lab Results - Last 24 Hours (Table) 07/19/19 07/19/19 07/20/19 Range/Units 16:42 20:32 06:35 Chloride 108 H (98-107) mmol/L Glucose 120 H (74-99) mg/dL POC Glucose (mg/dL) 154 H 208 H (75-99) mg/dL 07/20/19 07/20/19 Range/Units 06:50 11:45 Chloride (98-107) mmol/L Glucose (74-99) mg/dL POC Glucose (mg/dL) 120 H 174 H (75-99) mg/dL Microbiology - Last 24 Hours (Table) 07/18/19 12:28 Blood Culture - Preliminary Blood No Growth after 48 hours 07/18/19 12:37 Gram Stain - Final Neck Wound Culture - Final Methicillin resist S. aureus Assessment and Plan Plan: Cellulitis/abscess of the neck: Continue present antibiotics discuss with neurosurgery regarding possible incision and drainage Lactic acidosis and improved secondary to sepsis or neck abscess. Acute kidney injury improved now monitoring kidney function with IV vancomycin. Continue with IV fluids. Patient's kidney function is improving because of which I'm not discontinuing nonsteroidal anti-inflammatory medications the patient is already on at this time. Type 2 diabetes mellitus insulin-dependent Osteoarthritis GERD Obesity with BMI of 31.9 DVT prophylaxis early ambulation
[2019-07-20 16:55] LABS: Glucose,Whole Blood 199 mg/dL (75-99)
[2019-07-20 21:00] LABS: Glucose,Whole Blood 209 mg/dL (75-99)
[2019-07-20] MEDS: ATORVASTATIN 40 MG TAB PO SCH (21:03)
[2019-07-21] MEDS: SODIUM CHLORIDE 0.9% 1,000 ML IV SCH ×2 (03:22→09:00)
[2019-07-21] MEDS: IBUPROFEN 400 MG TAB PO PRN (04:41)
[2019-07-21 07:03] LABS: Glucose,Whole Blood 156 mg/dL (75-99)
[2019-07-21] MEDS: PANTOPRAZOLE 40 MG TABLET PO SCH (07:17)
[2019-07-21] MEDS: INSULIN ASPART (NovoLOG) 100 UNIT/ML VIAL SQ SCH (07:18)
[2019-07-21 08:30] VITALS: BP 142/76; PULSE 91; RESP 16; TEMP 98.3
[2019-07-21 08:43] LABS: Calcium 9.2 mg/dL (8.4-10.2); Potassium 4.5 mmol/L (3.5-5.1)
[2019-07-21] MEDS: ASPIRIN 81 MG PO SCH (08:57)
[2019-07-21] MEDS: amLODIPine 5 MG TAB PO SCH (08:57)
[2019-07-21] MEDS: INSULIN NPH 300 UNIT/3 ML VIAL SQ SCH (08:57)
[2019-07-21] MEDS: VANCOMYCIN 1,750 MG in SODIUM CHLORIDE 0.9% 500 ML 500 ML IVPB SCH (08:58)
--- NOTE | 2019-07-21 09:53 | P.PN ---
Subjective Progress Note Date: 07/21/19 CHIEF COMPLAINT: Neck abscess HISTORY OF PRESENT ILLNESS: Patient examined this morning at the bedside. He reports improvement in his pain of his neck abscess. It continues to drain purulent fluid. Cultures are positive for MRSA. PHYSICAL EXAM: VITAL SIGNS: Reviewed. GENERAL: Well-developed in no acute distress. HEENT: No sclera icterus. Extraocular movements grossly intact. Moist buccal mucosa. Head is atraumatic, normocephalic. ABDOMEN: Soft. Nondistended. Nontender. NEUROLOGIC: Alert and oriented. Cranial nerves II through XII grossly intact. SKIN: Approximately 6cm x 6cm area of induration to right posterior neck with open wound at center draining purulent drainage with surrounding erythema. No palpable fluid collection. Mild tenderness with palpation. ASSESSMENT: 1. Right neck abscess, cultures positive for MRSA PLAN: 1. Dr. Woodard consulted for antibiotic recommendations 2. Continue local wound care with daily and PRN dressing changes with dry gauze 3. No surgical intervention recommended at this time as wound is spontaneously draining 4. Discharge per medicine Nurse practitioner note has been reviewed by physician. Signing provider agrees with the documented findings, assessment, and plan of care. Objective - Vital Signs Vital signs: Vital Signs Temp 98.3 F 07/21/19 07:00 Pulse 91 07/21/19 07:00 Resp 16 07/21/19 07:00 BP 142/76 07/21/19 07:00 Pulse Ox 95 07/21/19 07:00 Intake & Output 07/20/19 07/21/19 07/21/19 18:59 06:59 18:59 Intake Total 500 Balance 500 Intake: Intake, IV Titration 500 Amount Vancomycin 1,750 mg In 500 Sodium Chloride 0.9% 500 ml 500 ml @ 167 mls/hr IVPB Q12H [facility] Rx#: [id number] Other: Voiding Method Toilet Toilet # Voids 1 1 1 - Labs CBC & Chem 7: 07/19/19 05:47 07/21/19 07:08 Labs: Abnormal Lab Results - Last 24 Hours (Table) 07/20/19 07/20/19 07/20/19 Range/Units 06:35 11:45 16:53 Chloride 108 H (98-107) mmol/L Glucose 120 H (74-99) mg/dL POC Glucose (mg/dL) 174 H 199 H (75-99) mg/dL 07/20/19 07/21/19 07/21/19 Range/Units 20:58 07:00 07:08 Chloride (98-107) mmol/L Glucose 151 H (74-99) mg/dL POC Glucose (mg/dL) 209 H 156 H (75-99) mg/dL Microbiology - Last 24 Hours (Table) 07/18/19 12:37 Gram Stain - Final Neck Wound Culture - Final Methicillin resist S. aureus 07/20/19 06:35 Blood Culture - Preliminary Blood No Growth after 24 hours 07/18/19 12:28 Blood Culture - Preliminary Blood No Growth after 48 hours
[2019-07-21 11:33] LABS: Glucose,Whole Blood 135 mg/dL (75-99)
--- NOTE | 2019-07-21 12:25 | P.DS ---
Providers Date of admission: 07/18/19 14:36 Expected date of discharge: 07/21/19 Attending physician: Natalya Lee Consults: 07/18/19 18:06 Consult Physician Routine Consulting Provider: Dre Irving Consult Reason/Comments: neck abscess Do you want consulting provider notified?: Yes, Notify in am 07/19/19 09:24 Consult Physician Routine Consulting Provider: Janna Woodard Consult Reason/Comments: Presumptive MRSA in neck abscess Do you want consulting provider notified?: Yes Primary care physician: Gris Lerner MD Hospital Course: Final diagnosis Cellulitis/abscess of the neck Lactic acidosis and improved secondary to sepsis or neck abscess. Acute kidney injury Type 2 diabetes mellitus insulin-dependent Osteoarthritis GERD Obesity with BMI of 31.9 DVT prophylaxis Discharge disposition Patient is being discharged in a stable condition with guarded prognosis to home and will follow-up with primary care provider in the outpatient setting upon discharge. Patient will complete a short course of oral antibiotics in the form of Bactrim for the next 7 days. Total time taken is 35 minutes. History of present illness This is a 58-year-old male who was recently admitted for an abscess on the right side of the neck and was being closely monitored. Surgery and infectious disease were following. Patient was started on IV antibiotics in the form of Vanco as the culture of the wound came back with MRSA. Surgery at this time is recommending no surgical intervention as the wound is open and draining on its own. Patient will be started on a short course of oral antibiotics in the form of Bactrim for the next week and will follow-up with primary care provider upon discharge. Currently patient's condition is stable and is ready for discharge today. Patient would like to go home today. Patient denies any chest pain, shortness of breath, or palpitations at this time. Patient has been afebrile. Patient denying any nausea or vomiting and is tolerating diet. Patient states that the pain and discomfort in his neck has minimized and is tender upon palpation otherwise manageable. Discussed with the patient at length about avoiding picking, scratching, or squeezing the site and leaving it alone as much as possible. Patient also instructed to wear a gauze over the area lightly to absorb some of the drainage otherwise may leave it open to air. Patient verbalized understanding of this treatment plan. Guarded prognosis. On exam vital signs are stable. Temp is 98.3F, pulse is 91, respirations are 16, blood pressure is 142/76, oxygen saturation is 95% on room air. Cardio S1 and S2 are present. Respiratory system shows clear to auscultation. Abdomen is soft and non-tender. Nervous system shows no focal deficits. Please refer to medication reconciliation sheet for a list of medications. Patient Condition at Discharge: Fair Plan - Discharge Summary Discharge Rx Participant: Yes New Discharge Prescriptions: New Sulfamethoxazole/Trimethoprim [Bactrim DS 800-160 mg] 1 each PO BID 7 Days #14 tablet Continue metFORMIN HCL [metFORMIN HCL ER] 1,000 mg PO BID Aspirin 81 mg PO DAILY Insulin NPH Human Isophane [NovoLIN N] 17 units SQ DAILY Atorvastatin [Lipitor] 40 mg PO HS amLODIPine [Norvasc] 5 mg PO DAILY Sulfamethox-Tmp 800-160Mg [Bactrim DS 800-160 mg] 1 tab PO Q12HR Omeprazole 20 mg PO DAILY Discharge Medication List Aspirin 81 mg PO DAILY 08/11/16 [History] metFORMIN HCL [metFORMIN HCL ER] 1,000 mg PO BID 08/11/16 [History] Atorvastatin [Lipitor] 40 mg PO HS 03/28/19 [History] Insulin NPH Human Isophane [NovoLIN N] 17 units SQ DAILY 03/28/19 [History] Omeprazole 20 mg PO DAILY 07/18/19 [History] Sulfamethox-Tmp 800-160Mg [Bactrim DS 800-160 mg] 1 tab PO Q12HR 07/18/19 [History] amLODIPine [Norvasc] 5 mg PO DAILY 07/18/19 [History] Sulfamethoxazole/Trimethoprim [Bactrim DS 800-160 mg] 1 each PO BID 7 Days #14 tablet 07/21/19 [Rx] Follow up Appointment(s)/Referral(s): Brigette Owen [Other] - 07/27/19 3:00 pm ([facility]) Patient Instructions/Handouts: MRSA (Methicillin-Resistant Staphylococcus Aureus) (DC) Activity/Diet/Wound Care/Special Instructions: Activity Limited until follow-up Follow-up with primary care provider upon discharge Take full course of antibiotics until finished Avoid picking, poking, or squeezing the site Continue to monitor blood sugars before meals at bedtime Continue current heart healthy, diabetic diet Discharge Disposition: HOME SELF-CARE
--- NOTE | 2019-07-21 12:33 | PN ---
PROGRESS NOTE DATE OF SERVICE: 07/21/2019 REASON FOR FOLLOWUP: Posterior neck abscess, MRSA. INTERVAL HISTORY: The patient is currently afebrile. Patient is breathing comfortably. The patient overall pain to the neck area has improved. No further drainage. Denies any chest pain, no cough. No abdominal pain, no diarrhea. PHYSICAL EXAMINATION: Blood pressure 142/76 with a pulse of 91, temperature 98.3, he is 95% on room air. General description is a middle-aged male, lying in bed in no distress. The posterior neck area swelling and redness has decreased and less induration. LUNGS: Unlabored breathing, clear to auscultation. HEART: S1, S2. Regular rate and rhythm. ABDOMEN: Soft, no tenderness. LABS: Creatinine is 1.11. Blood culture has been negative. DIAGNOSTIC IMPRESSION AND PLAN: Patient with posterior neck abscess, methicillin-resistant Staphylococcus aureus, status post spontaneous drainage. Patient has shown overall improvement in the area for inflammation and should be able to finish therapy with oral Bactrim DS twice a day for about 10 days with close outpatient followup. MMODL / IJN: [id number] /
[2019-07-22] MEDS ORDERED: VANCOMYCIN TROUGH DUE 1 EACH MISC MISCELLANE ONE (08:00)
--- NOTE | 2019-07-25 23:21 | CDI ---
Documentation Clarification Form Date: 07/26/19 From: Lj Alexandre Phone: If you have a question about this query, please contact Mraya Olguin, Operater at [phone] between 8am and 5pm. Admit Date: 07/18/19 Discharge Date: 07/21/19 Patient Name: Arsalan Mcgill Visit Number: [id number] ATTENTION: The Clinical Documentation Specialists (CDI) and [facility] Coding Staff appreciate your assistance in clarifying documentation. Please respond to the clarification below the line at the bottom and electronically sign. The CDI & [facility] Coding staff will review the response and follow-up if needed. Please note: Queries are made part of the Legal Health Record. If you have any questions, please contact the author of this message via ITS. Dear Ema Diop, This is a 58-year-old male who was recently admitted for an abscess on the right side of the neck and was being closely monitored.Surgery and infectious disease were following.Patient was started on IV antibiotics in the form of Vanco as the culture of the wound came back with MRSA. History/Risk Factors:Diabetes Mellitus, GERD/Reflux ,BILATERAL CATARACT IMPLANTS In ED under impression " Cellulitis, neck, Sepsis " WBC 10.9 H Lactic acid: 1.9* and 2.3HH Blood cultures: Negative Vitals signs on admission:Pulse Rate 117 H, O2 Sat by Pulse 99 Treatment: IV antibiotics Antibiotics: Bactrim IV Bolus: 500 mL of IV bolus of normal saline. Other : Cellulitis/abscess of the neck , culture of the wound came back with MRSA. In DS note stated as "Lactic acidosis and improved secondary to sepsis or neck abscess." In your professional opinion, please clarify condition Sepsis: Sepsis ruled out Sepsis ruled in Other, please specify Unable to determine Sepsis ruled in MTDD
== END 2019-07-21 13:11 | disposition home or self-care (01) | DRG 872 ==
LOC: EC 11:18 → 4SSUR 14:36
PROVIDERS: ADMIT Internal Medicine; ATTEND Internal Medicine
DX: A41.9 Sepsis, unspecified organism (principal); E87.2 Acidosis; L02.11 Cutaneous abscess of neck; L03.221 Cellulitis of neck; N17.9 Acute kidney failure, unspecified; B95.62 Methicillin resistant Staphylococcus aureus infection as the cause of diseases classified elsewhere; E11.9 Type 2 diabetes mellitus without complications; E66.9 Obesity, unspecified; I10 Essential (primary) hypertension; K21.9 Gastro-esophageal reflux disease without esophagitis; M19.90 Unspecified osteoarthritis, unspecified site; Z96.1 Presence of intraocular lens; Z68.31 Body mass index [BMI] 31.0-31.9, adult; Z79.4 Long term (current) use of insulin; Z79.82 Long term (current) use of aspirin; Z79.899 Other long term (current) drug therapy; Z80.6 Family history of leukemia; Z83.3 Family history of diabetes mellitus; Z98.42 Cataract extraction status, left eye; Z98.41 Cataract extraction status, right eye; Z90.49 Acquired absence of other specified parts of digestive tract; Z98.890 Other specified postprocedural states; Z88.5 Allergy status to narcotic agent
CPT/HCPCS: 36415; 80048; 80053; 83036; 83605; 85025; 85610; 85730; 87040; 87070; 87077; 87186; 87205; 96365; 96366; 99284